=== PATIENT | female | born 1940 | race Caucasian/White ===

== ENCOUNTER 2018-02-02 14:13 | Inpatient (IN) ==
[2018-02-02] MEDS ORDERED: 0.9 % Sodium Chloride 1,000 ML IVC ONE ×2 (15:18→17:11)
--- NOTE | 2018-02-02 15:31 | Emergency Department Note ---
Disposition Clinical Impression: Generalized weakness, Dehydration Urinary tract infection Qualifiers: Urinary tract infection type: site unspecified Hematuria presence: without hematuria Qualified Code(s): N39.0 - Urinary tract infection, site not specified Pneumonia Qualifiers: Pneumonia type: due to unspecified organism Laterality: left Lung location: unspecified part of lung Qualified Code(s): J18.9 - Pneumonia, unspecified organism Disposition: Admitted As Inpatient Referrals: NONE,PCP [Primary Care Provider] - Forms: ED Satisfaction Letter General Adult HPI - General Chief complaint: ED Dizziness Stated complaint: Dizziness,Weakness Time Seen by Provider: 02/02/18 14:45 Source: patient Limitations: no limitations Nursing Notes Reviewed: Yes Vital Signs Reviewed: Yes - History of Present Illness HPI Narrative: Patient is a 77-year-old female with past medical history of hypertension and atrial fibrillation who presents with chief complaint of generalized weakness. Patient was in the hospital last week for decreased by mouth intake and abdominal pain. She was found to have a patulous lower esophageal sphincter and urinary tract infection. She was discharged home on Reglan, Macrobid, omeprazole. Patient states that her gastroesophageal reflux has improved on the omeprazole. She has a follow-up scheduled with gastroenterology February 24. She is still on the Macrobid. Denies dysuria. This morning the patient woke up with generalized bilateral weakness. She also complains of frontal headache. She denies dizziness, lightheadedness, chest pain, shortness of breath. She also notes a productive cough with clear sputum this morning. She went to the residency clinic for a follow-up and they sent her here for concerns of dehydration and to be admitted. She states that she only drinks one bottle of water per day and is still having decreased by mouth intake. Pain Scale: 10 - Related Data Previous Rx's Medication Instructions Recorded Metoclopramide [Reglan] 10 mg PO Q6HR PRN #14 tablet 01/28/18 Nitrofurantoin Monohyd/M-Cryst 100 mg PO BID #14 capsule 01/28/18 [Macrobid 100 mg Capsule] Omeprazole 20 mg PO BID #60 tab 01/28/18 Allergies Allergy/AdvReac Type Severity Reaction Status Date / Time Methadone Allergy Confusion Verified 01/28/18 10:49 Penicillins AdvReac Rash Verified 01/28/18 10:49 All systems ED: reviewed and negative except as stated. Review of Systems: As Per HPI Constitutional: Denies: fever, chills Eyes: Denies: vision change Cardiovascular: Denies: chest pain, palpitations Respiratory: Reports: cough. Denies: dyspnea, wheezes Gastrointestinal: Denies: abdominal pain, nausea, vomiting, diarrhea Genitourinary: Denies: urgency, dysuria Musculoskeletal: Denies: back pain, neck pain Integumentary: Denies: rash, abrasion Neurological: Reports: headache, weakness. Denies: numbness, paresthesias, confusion Past Medical History - Past Medical History Attestation: Yes The following information was validated with the patient. Source: patient, obtained from family Medical history: Reports: atrial fibrillation, hypertension, myocardial infarction Psychiatric history: Reports: anxiety, depression - Social History Smoking Status: Never smoker Smokeless Tobacco Status: No Alcohol use: Reports: none Drug use: Reports: none Physical Exam - General Limitations: no limitations General appearance: alert, in no apparent distress - Head Head exam: atraumatic, normocephalic - Eye Eye exam: Present: EOMI, other (Minimal pupillary responsiveness to light of right pupil which patient states is chronic for the past couple of years, she also has glaucoma. left pupil round and reactive to light.). Absent: nystagmus - ENT ENT exam: normal oropharynx, mucous membranes dry - Neck Neck exam: Present: normal inspection - Respiratory Respiratory exam: Present: normal lung sounds bilaterally. Absent: respiratory distress, wheezes, accessory muscle use - Cardiovascular Cardiovascular exam: Present: regular rate, normal rhythm. Absent: systolic murmur, diastolic murmur - Abdominal Exam Abdominal exam: Present: soft, Non-Tender, normal bowel sounds. Absent: distention, guarding - Extremities Exam Extremities exam: Present: normal inspection, full ROM - Expanded Neurological Exam Patient oriented to: Present: person, place, time Speech: Present: fluid speech Cranial nerves: EOM function (II, III, IV, ): Normal, facial sensation (V): Normal, facial palsy (VII): Normal, spinal accessory function (XI): Normal, tongue deviation (XII): Normal Cerebellar function: finger to nose: Normal Motor strength - LUE: 5/5 Motor strength - RUE: 5/5 Motor strength - LLE: 5/5 Motor strength - RLE: 5/5 Upper motor neuron exam: alfredo neglect: Absent bilaterally, pronator drift: Absent bilaterally Sensory exam upper extremity: light touch: Normal Sensory exam lower extremity: light touch: Normal - Psychiatric Psychiatric exam: Present: normal affect, normal mood - Skin Skin exam: Present: warm, dry, other (poor skin turgor ) Course Vital Signs Temperature 98.1 F 02/02/18 14:19 Pulse Rate 88 02/02/18 14:19 Respiratory Rate 16 02/02/18 14:19 Blood Pressure 94/64 02/02/18 14:19 O2 Sat by Pulse Oximetry 96 02/02/18 14:19 Temperature 98.1 F 02/02/18 14:54 Pulse Rate 88 02/02/18 14:54 Respiratory Rate 16 02/02/18 14:54 Blood Pressure 94/64 02/02/18 14:54 O2 Sat by Pulse Oximetry 96 02/02/18 14:54 Oxygen Delivery Oxygen Delivery Room Air Medical Decision Making - MDM Narrative Medical decision making narrative: Patient was sent over from the residency clinic to be admitted for concerns of dehydration and generalized weakness. She is still on Macrobid or a urinary tract infection. We will check BMP and give the patient 1 L of IV fluidsshe appears clinically dry. We will also check EKG given the patient's generalized weakness and history of atrial fibrillation. She is not complaining of any chest pain or shortness of breath or nausea. We will also check chest x-ray as the patient is complaining of new cough with productive sputum. She is otherwise afebrile and vitals are stable. 1700 Chest x-ray positive for left patchy basilar obesity concerning for pneumonia. Rocephin and Zithromax ordered. We will give him another liter of IV fluids as the patient continues to appear dry. Labs reviewed. Potassium 3.3 and calcium 8.5. Consult hospitalist as we plan to admit the patient for dehydration and generalized weakness and pneumonia. 1730 Hospitalist accepts patient for admission. Called patient's son to give him an update. - Medical Records Medical records reviewed: Yes I reviewed the patient's medical records. - Lab Data Lab results reviewed: Yes I reviewed the patient's lab results. Result diagrams: 02/02/18 16:38 Lab Results 02/02/18 02/02/18 Range/Units 15:34 16:38 Sodium 135 L (136-145) mEq/L Potassium 3.3 L (3.5-5.1) mEq/L Chloride 103 (98-107) mEq/L Carbon Dioxide 25 (23-29) mEq/L BUN 14 (8-23) mg/dL Creatinine 0.72 (0.60-1.20) mg/dL Est GFR ( Amer) > 60 (> 60) Est GFR (Non-Af Amer) > 60 (> 60) BUN/Creatinine Ratio 19 (6-26) Glucose 94 (70-105) mg/dL Calculated Osmolality 280 (280-300) Calcium 8.5 L (8.6-10.3) mg/dL Specimen Rejected Hemolyzed - Radiology Data Radiology results reviewed: Yes I reviewed the patient's radiology results. Chest X-Ray 02/02/18 15:19 IMPRESSION: Patchy left basilar opacity concerning for pneumonia. RECOMMENDATION: Radiographic follow-up after symptom resolution and treatment. D/ / Miah Brunson MD / Miah Brunson MD Interpreting Provider: Miah Brunson MD - EKG Data EKG #1 EKG attestation: Yes I reviewed and interpreted this EKG. EKG results narrative: EKG reviewed from 1546 which shows sinus rhythm with rate 78. QT 410, QTc 467. IA interval 145. No acute ST depression or elevation. Compared to prior EKG which appears unchanged from prior EKG on 01/28/18. T wave inverted in V2 unchanged from prior.
[2018-02-02 17:12] LABS: BUN/Creatinine Ratio 19 (6-26); Blood Urea Nitrogen 14 mg/dL (8-23); Calcium 8.5 mg/dL (8.6-10.3); Carbon Dioxide 25 mEq/L (23-29); Chloride 103 mEq/L (98-107); Glucose 94 mg/dL (70-105); Osmolality,Calculated 280 (280-300); Potassium 3.3 mEq/L (3.5-5.1); Sodium 135 mEq/L (136-145); eGFR For Non-African Americans > 60 (> 60)
[2018-02-02] MEDS ORDERED: cefTRIAXone 1,000 MG in Water for inj. (sterile) 20 ML 10 ML IVP ONE (17:12)
[2018-02-02] MEDS ORDERED: Azithromycin 500 MG in D5% in Water 250 ML IVPB ONE (17:47)
[2018-02-02 17:55] LABS: Hematocrit 39.7 % (35.3-44.9); Mean Corpuscular HGB Conc 33.2 g/dL (31.6-35.5); Mean Corpuscular Volume 87.3 fL (83.0-100.0); Mean Platelet Volume 10.7 fL (9.4-12.4); Platelet Count 201 K/mcL (140-400); Red Blood Count 4.55 M/mcL (3.82-4.97); Red Cell Distribution Width 13.8 % (11.5-14.5)
[2018-02-02 17:57] LABS: Hemoglobin 13.2 g/dL (11.5-15.4)
[2018-02-02] MEDS ORDERED: Naloxone 0.4 MG/ML INJ IVP PRN (17:59)
[2018-02-02] MEDS ORDERED: Ondansetron 4 MG/2 ML VIAL IVP PRN (18:03)
--- NOTE | 2018-02-02 18:14 | Internal Med History&Physical ---
Date of Encounter: 02/02/18 Time of Encounter: 18:07 Internal Medicine - H&P: HPI Chief complaint: Vomiting Admitted From: Home Plans for Post Hospital Care: Transfer Halfway Facility History of present illness: Ms. Rubin is a 77 year old female with hypertension and atrial fibrillation not on anticoagulation who presents with chief complaint of generalized weakness. As per patient she has had 2 week history of epigastric abdominal burning that radiates up her chest, 5 out of 10 on severity and progressively worsening. Her epigastric abdominal discomfort is also associated with nausea and vomiting. She reports that she is unable to keep any solids down and immediately vomits after swallowing, she reports that her vomitus contains food mixed with sputum denies bile or blood. She is able to tolerate liquids and has been hydrating herself with an sure liquids. Her symptoms have progressively wor sened for the past 2 weeks, she reports that solid food aggravates her symptoms and liquids alleviate her symptoms. She was seen in the emergency department on 01/28 and was discharged with PPI. She was also scheduled with gastroenterology appointment for February 24. This morning she was unable to use her walker as she felt more weak and dehydrated. She is not drank anything or ate anything for the past 24 hours. She denies falls, loss of function to her extremities, headache, vision changes, diarrhea, loss of consciousness, chest pain, palpitations or shortness of breath. She denies calf tenderness, trauma to her legs, syncopal episodes. Aiden line she walks with her walker however as she has not been able to eat any solid foods for the past 2 weeks she believes that she is becoming increasingly weak and is unable to use her walker. During her emergency department visit on January 28 she was also diagnosed with a urinary tract infection and was started on Macrobid antibiotics she reports that she has 2 more days to finish the course. While in the emergency department chest x-ray showed possible pneumonia, UA was positive and she was found to have leukocytosis of 18. She was endorsed for management of above symptoms. When asked if she is had history of irregular heartbeats she reports that she is unsure however she does have multiple falls and she reports that she is only t aking aspirin. Past Med Surg Social Fam HX - Past Medical History Medical history: atrial fibrillation, hypertension, myocardial infarction Psychiatric history: anxiety, depression - Past Surgical History Additional surgical history: 2 left knee replacements. 1 right knee replacement. back. bilateral hips. right femur fx - Social History Smoking Status: Never smoker Smokeless Tobacco Status: No Alcohol use: none Drug use: none Internal Medicine - H&P: Meds Metoclopramide [Reglan] 10 mg PO Q6HR PRN #14 tablet 01/28/18 [Rx] Nitrofurantoin Monohyd/M-Cryst [Macrobid 100 mg Capsule] 100 mg PO BID #14 capsule 01/28/18 [Rx] Omeprazole 20 mg PO BID #60 tab 01/28/18 [Rx] Allergy/AdvReac Type Severity Reaction Status Date / Time Methadone Allergy Confusion Verified 01/28/18 10:49 Penicillins AdvReac Rash Verified 01/28/18 10:49 All Systems PM: A 10-system review of systems was performed and is negative for pertinent findings except as documented above in the HPI. - Constitutional Vitals: Temp Pulse Resp BP Pulse Ox 98.1 F 88 16 94/64 96 02/02/18 14:54 02/02/18 14:54 02/02/18 14:54 02/02/18 14:54 02/02/18 14:54 Exam: General: Patient is alert, oriented, no acute distress, Head: atraumatic, normocephalic, Eye: normal appearance, PERRL, no scleral icterus, no conjunctival injection ENT: mucous membranes dry, normal external ear exam Neck: normal inspection, trachea midline, full ROM, no carotid bruits Chest: normal inspection, symmetric chest rise Respiratory: Good respiratory effort. Bilateral breath sounds are clear without wheezing, crackles, or rhonchi. Cardiovascular: Regular rate and rhythm. s1 and s2 No clicks, rubs, gallops, or murmors. Abdomen: Bowel sounds present normoactive x-4 quadrants. Abdomen is soft, nondistended. no Epigastric tenderness. No guarding or rebound. No organomegaly noted, obese musculoskeletal: Spontaneously moving all extremities. no edema, no calf tenderness Skin: warm, dry, intact. Neuro: Alert and oriented x4. No focal deficit Psych: Patient's affect is normal Internal Med - H&P Results - Labs CBC & Chem 7: 02/02/18 16:38 02/02/18 16:38 Labs: Short CBC 02/02/18 Range/Units 16:38 WBC 18.0 H D (4.3-11.1) K/mcL Hgb 13.2 D (11.5-15.4) g/dL Hct 39.7 (35.3-44.9) % Plt Count 201 (140-400) K/mcL [facility] 02/02/18 16:38 Sodium 135 L Potassium 3.3 L Chloride 103 Carbon Dioxide 25 BUN 14 Creatinine 0.72 Glucose 94 Calcium 8.5 L - Impressions ITS Impressions Chest X-Ray 02/02/18 15:19 IMPRESSION: Patchy left basilar opacity concerning for pneumonia. RECOMMENDATION: Radiographic follow-up after symptom resolution and treatment. D/ / Miah Brunson MD / Miah Brunson MD Interpreting Provider: Miah Brunson MD - Assessment and plan (1) Patulous lower esophageal sphincter Current Visit: No Status: Acute Assessment and plan: Dysphagia with solids and not liquids most likely secondary to stricture versus mass versus achalasia rule out malignancy Clear liquid diet, nothing by mouth at midnight GI consulted will follow recommendations for possible EGD in the morning Protonix IV Started on IV fluids, watch for overload IMPRESSION: 1. No acute abnormalities in the abdomen or pelvis. 2. Status post gastric surgery. Dilated patulous esophagus containing fluid. 3. Left nephrolithiasis but no obstructive uropathy. (2) CAP (community acquired pneumonia) Current Visit: Yes Status: Acute Assessment and plan: Left lower lobe opacity concerning for pneumonia, has increased sputum production Started on ceftriaxone and doxycycline- will de-escalate as per cultures Urine antigens Sputum cultures Blood cultures Respiratory viral panel MRSA screen Qualifiers: Laterality: left Lung location: lower lobe of lung Qualified Code(s): J18.1 - Lobar pneumonia, unspecified organism (3) Generalized weakness Current Visit: Yes Status: Acute Assessment and plan: Most likely secondary to poor oral intake and dehydration: Rule out stroke Started on IV fluidswatch for overload High risk for refeeding syndrome, will monitor phosphorus magnesium and CMP TSH, Magnesium, PO4 EKG stat -m unable to locate Admission EKG CT head ( history of Afib not on AC) - has multiple falls and unsteady gait Pt/OT CM, SW (4) Urinary tract infection Current Visit: Yes Status: Acute Assessment and plan: Was recently diagnosed with urinary tract infection and was discharged with Macrobid Currently on ceftriaxone as above Follow urine cultures retroperitoneal US to rule out hydronephrosis and obstruction Qualifiers: Urinary tract infection type: acute cystitis Hematuria presence: with hematuria Qualified Code(s): N30.01 - Acute cystitis with hematuria (5) Hypokalemia Current Visit: Yes Status: Acute Assessment and plan: replaced - follow in AM (6) DVT prophylaxis Current Visit: Yes Status: Acute Assessment and plan: heparin SC - Time Spent With Patient Total time spent is greater than 50% in coordination of care (as documented) at patient's floor/unit and/or counseling patient:
[2018-02-02 18:41] LABS: Bilirubin,Urine Negative (Negative); Blood,Urine Negative (Negative); Clarity,Urine Clear (Clear); Color,Urine Dark Yellow (Yellow); Glucose,Urine (UA) Normal (Normal); Ketones,Urine 15 mg/dL (Negative); Leukocyte Esterase,Urine Small (Negative); Nitrite,Urine Negative (Negative); Protein,Urine Negative (Neg-Trace); Specific Gravity,Urine 1.013 (1.010-1.025); Urobilinogen,Urine Normal (Normal)
[2018-02-02 18:48] LABS: Bacteria,Urine None Seen per hpf (None-Few); Hyaline Casts,Urine None Seen per lpf (None-Few); Squamous Epithelial Cell,Urine Many per lpf (None-Few)
[2018-02-02] MEDS: Pantoprazole 40 MG VIAL IVP SCH (20:25)
[2018-02-02] MEDS: 0.9 % Sodium Chloride 1,000 ML IVC SCH (20:25)
[2018-02-02] MEDS: Doxycycline 100 MG in 0.9 % Sodium Chloride Mini Bag 100 ML IVPB SCH (21:24)
[2018-02-02] MEDS: *HR* Heparin 5,000 UNIT/ML VIAL SQ SCH (22:46)
[2018-02-03 02:27] LABS: Adenovirus Not Detected (Not Detect); Bordetella Pertussis Not Detected (Not Detect); Chlamydophila pneumoniae Not Detected (Not Detect); Coronavirus 229E Not Detected (Not Detect); Coronavirus HKU1 Not Detected (Not Detect); Coronavirus NL63 Not Detected (Not Detect); Coronavirus OC43 Not Detected (Not Detect); Human Metapneumovirus Not Detected (Not Detect); Human Rhinovirus/Enterovirus Not Detected (Not Detect); Influenza A Subtype 2009 H1 Not Detected (Not Detect); Influenza A Untypeable Not Detected (Not Detect); Influenza B Not Detected (Not Detect); Mycoplasma pneumoniae Not Detected (Not Detect); Parainfluenza Virus 1 Not Detected (Not Detect); Parainfluenza Virus 2 Not Detected (Not Detect); Parainfluenza Virus 3 Not Detected (Not Detect); Parainfluenza Virus 4 Not Detected (Not Detect); Respiratory Syncytial Virus Not Detected (Not Detect)
[2018-02-03 05:11] LABS: VBG Ionized Calcium 1.04 mmol/L (1.15-1.35)
[2018-02-03 05:13] LABS: Basophils % 0.1 %; Eosinophils % 0.2 %; Hematocrit 34.4 % (35.3-44.9); Immature Granulocytes % 0.2 % (0-4); Lymphocytes # 1.5 K/mcL (0.6-4.6); Lymphocytes % 14.9 %; Mean Corpuscular HGB Conc 33.4 g/dL (31.6-35.5); Mean Corpuscular Hemoglobin 28.9 pg (28.0-33.3); Mean Corpuscular Volume 86.4 fL (83.0-100.0); Mean Platelet Volume 11.2 fL (9.4-12.4); Monocytes # 0.6 K/mcL (0.0-1.3); Monocytes % 5.7 %; Neutrophils # 8.1 K/mcL (1.6-8.9); Platelet Count 173 K/mcL (140-400); Red Blood Count 3.98 M/mcL (3.82-4.97); Red Cell Distribution Width 13.8 % (11.5-14.5); Segmented Neutrophils % 78.9 %
[2018-02-03 05:14] LABS: Hemoglobin 11.5 g/dL (11.5-15.4)
[2018-02-03 05:20] LABS: INR 1.3; Prothrombin Time 14.2 Seconds (9.4-12.1)
[2018-02-03] MEDS: Doxycycline 100 MG in 0.9 % Sodium Chloride Mini Bag 100 ML IVPB SCH ×2 (05:22→21:15)
[2018-02-03] MEDS: *HR* Heparin 5,000 UNIT/ML VIAL SQ SCH ×3 (05:22→21:14)
[2018-02-03 05:30] LABS: Alanine Aminotransferase 7 Units/L (7-52); Albumin 2.9 g/dL (3.5-5.7); Albumin/Globulin Ratio 1.6 (1.1-2.2); Alkaline Phosphatase 45 Units/L (34-104); Aspartate Amino Transferase 12 Units/L (13-39); BUN/Creatinine Ratio 20 (6-26); Bilirubin,Total 0.7 mg/dL (0.3-1.0); Blood Urea Nitrogen 11 mg/dL (8-23); Calcium 7.6 mg/dL (8.6-10.3); Carbon Dioxide 25 mEq/L (23-29); Chloride 109 mEq/L (98-107); Chol/HDL Ratio 2.2 (0-4.9); Cholesterol 76 mg/dL (< 200); Globulin 1.8 g/dL (2.4-3.5); Glucose 88 mg/dL (70-105); HDL Cholesterol 34 mg/dL (40-59); LDL Cholesterol,Calculated 29 mg/dL (0-99); Magnesium 1.7 mg/dL (1.6-2.6); Osmolality,Calculated 287 (280-300); Phosphorous 1.4 mg/dL (2.7-4.5); Sodium 139 mEq/L (136-145); Total Protein 4.7 g/dL (6.4-8.9); Triglycerides 65 mg/dL (< 150); eGFR For Non-African Americans > 60 (> 60)
--- NOTE | 2018-02-03 09:25 | Gastroenterology Consult Note ---
Date of Encounter: 02/03/18 Time of Encounter: 10:20 - Assessment and plan (1) Dysphasia Current Visit: Yes Status: Acute Assessment and plan: Patient is appearing to have dysphasia seemingly in the esophageal phase This is likely secondary to the finding of the dilated patulous esophagus demonstrated on CT 1 week ago Still, the patient has not had EGD recently for proper workup She has attempted Prilosec and Reglan which had not been helpful We will plan for EGD today to workup causes of dysphasia and significant nausea and vomiting and rule out malignancy Recommend against transition to PO doxycycline as it is caustic to esophagus (2) Nausea and vomiting Current Visit: Yes Status: Acute Assessment and plan: As above Qualifiers: Vomiting type: unspecified Vomiting Intractability: intractable Qualified Code(s): R11.2 - Nausea with vomiting, unspecified (3) Patulous lower esophageal sphincter Current Visit: Yes Status: Acute Assessment and plan: As above (4) Pneumonia Current Visit: Yes Status: Acute Assessment and plan: Pneumonia, demonstrated on chest x-ray Patient also does have crackles in the left lung base Antibiotics managed by primary team Qualifiers: Pneumonia type: due to unspecified organism Laterality: left Lung location: unspecified part of lung Qualified Code(s): J18.9 - Pneumonia, unspecified organism - Time Spent With Patient Total time spent is greater than 50% in coordination of care (as documented) at patient's floor/unit and/or counseling patient: GI History of Present Illness - Data of Consult Patient: new to practice Consult date: 02/03/18 Requesting Physician: Danielle Gómez MD - Consult Narrative Reason for consult: Dysphasia History of present illness: Ms. Rubin is a 77 year old female with history of atrial fibrillation not on anticoagulation, hypertension, myocardial infarction, recent urinary tract infection on antibiotics, and recent diagnosis of patulous lower esophageal sphincter who presents to the ED from her primary care physician's office with 2 week history of nausea, vomiting and dysphagia. The patient says that specifically she has been having worsening abdominal and epigastric pain with burning sensation in her esophagus or chest or approximately 2 weeks. He currently bad for the past week and she has been unable to tolerate any solids for the past week. She says every time she attempts to swallow any solid food she says that it does come straight back up. When she does not this material back up, she says it looks almost exactly as it did prior to swallowing. She denies any blood or bile in her vomit. She does say that she has been able to tolerate fluids up until this point, supplementing her diet primarily with ensure. On presentation, she said that her epigastric pain was 5 or 6/10, nonradiating, and burning in character. She did present to the ER on 01/28/18 at which time she had an abdominal CT that demonstrated patulous lower esophageal sphincter at which time she was discharged home with Prilosec and Reglan liver did not appear to help very much. She says that she has been losing weight since this began and says that she has lost 10 pounds in 1 week, primarily due to dehydration. She denies melena, hematochezia, hematemesis. Past Med Surg Social Fam HX - Past Medical History Medical history: atrial fibrillation, hypertension, myocardial infarction Psychiatric history: anxiety, depression - Past Surgical History Additional surgical history: 2 left knee replacements. 1 right knee replacement. back. bilateral hips. right femur fx - Social History Smoking Status: Never smoker Smokeless Tobacco Status: No Alcohol use: none Drug use: none Review of Systems: Constitutional: Denies chills. Admits to fever, generalized fatigue. Head/Neck: Denies JOHNSON, neck stiffness EENT: Denies vision changes/blurriness, rhinorrhea, congestion, sore throat CVS: Denies chest pain, palpitations, FENG, orthopnea, edema, PND Pulm: Denies SOB, hemoptysis, wheezing. Admits to cough with sputum production GI: Denies diarrhea, constipation, melena, hematemasis. Admits to abdominal pain, nausea, vomiting. : Denies dysuria, increased frequency, urgency, hematuria. Heme: Denies ease of bleeding or bruising MSK: Denies joint pain, limited ROM Skin: Denies rashes, ulcers, color changes Neuro: Denies JOHNSON, paresthesias, focal deficits, ataxia - Constitutional Vitals: Temp Pulse Resp BP Pulse Ox 98.0 F 79 15 90/60 92 02/03/18 06:28 02/03/18 06:28 02/03/18 06:28 02/03/18 07:02 02/03/18 06:28 Exam: Gen: Vitals noted. No acute distress. Eyes: anicteric sclerae, moist conjunctivae; no lid-lag; Pupils equal and reactive to light HENT: Atraumatic; oropharynx clear with moist mucous membranes and no mucosal ulcerations; normal hard and soft palate Neck: Trachea midline; supple, no thyromegaly or lymphadenopathy Cardiac: RRR, no murmur, +S1/S2 Pulmonary: Crackles present in left lower lung base Abdomen: soft, nontender, no guarding. No masses or hepatosplenomegaly MSK: ROM intact, no joint swelling noted Extremities: no BLE edema, nontender calf, no cyanosis or clubbing Skin: Normal temperature, turgor and texture; no rash, ulcers or subcutaneous nodules Neuro: moves all extremities, no focal deficits. Psych: Appropriate mood and behavior. A&Ox3 Results - Labs CBC & Chem 7: 02/03/18 04:31 12 04:31 Labs: Last Result Calcium 7.6 mg/dL (8.6-10.3) L 02/03/18 04:31 Triglycerides 65 mg/dL (< 150) 02/03/18 04:31 Entire Visit Hgb 11.5 g/dL (11.5-15.4) D 02/03/18 04:31 Hct 34.4 % (35.3-44.9) L 02/03/18 04:31 PT 14.2 Seconds (9.4-12.1) H 02/03/18 04:31 Total Bilirubin 0.7 mg/dL (0.3-1.0) 02/03/18 04:31 AST 12 Units/L (13-39) L 02/03/18 04:31 ALT 7 Units/L (7-52) 02/03/18 04:31 - ABG ABG results: PT/INR, D-dimer PT 14.2 Seconds (9.4-12.1) H 02/03/18 04:31 - Impressions Impressions Chest X-Ray 02/02/18 15:19 IMPRESSION: Patchy left basilar opacity concerning for pneumonia. RECOMMENDATION: Radiographic follow-up after symptom resolution and treatment. D/ / Miah Brunson MD / Miah Brunson MD Interpreting Provider: Miah Brunson MD Head CT 02/02/18 18:08 IMPRESSION: Minimal small-vessel ischemic changes bilaterally No acute intracranial abnormality. D/ / Jeremy Richards / Jeremy Richards Interpreting Provider: Jeremy Richards Consult Discharge Plan - Plan Referrals: Subhash Conway MD [Partnered Physician] - 02/22/18 3:00 pm Alexis Love DO [Resident] - 03/02/18 3:00 pm NONE,PCP [Primary Care Provider] -
[2018-02-03] MEDS: 0.9 % Sodium Chloride 1,000 ML IVC SCH (10:27)
[2018-02-03] MEDS: Pantoprazole 40 MG VIAL IVP SCH (10:27)
[2018-02-03] MEDS: cefTRIAXone 2,000 MG in 0.9 % Sodium Chloride Mini Bag 100 ML IVPB SCH (10:27)
--- NOTE | 2018-02-03 14:15 | Anesthesia Evaluation PreOp ---
Date of Encounter: 02/03/18 Time of Encounter: 14:10 - Past History Planned Operation: EGD Cardiac History: SC, HTN Pulmonary History: Denies Any Significant HX ACADEMIC SUPPORT COORDINATOR History: Denies Any Significant HX Other Medical History: Other (Anxiety Depression) Anesthesia History: No Prior Anesthetic Complications : No Alcohol Use: none Drug use: none Medications and Allergies Metoclopramide [Reglan] 10 mg PO Q6HR PRN #14 tablet 01/28/18 [Rx] Nitrofurantoin Monohyd/M-Cryst [Macrobid 100 mg Capsule] 100 mg PO BID #14 capsule 01/28/18 [Rx] Atenolol [Tenormin] 25 mg PO DAILY 02/03/18 [History] Estradiol [Estrace] 1 appl VG 2XW 02/03/18 [History] Mirabegron [Myrbetriq] 50 mg PO DAILY 02/03/18 [History] Pantoprazole Sodium [Protonix] 40 mg PO DAILY 02/03/18 [History] Solifenacin Succinate [Vesicare] 5 mg PO DAILY 02/03/18 [History] traZODone [TraZODone] 50 mg PO HS PRN 02/03/18 [History] Allergy/AdvReac Type Severity Reaction Status Date / Time Methadone Allergy Confusion Verified 01/28/18 10:49 Penicillins AdvReac Rash Verified 01/28/18 10:49 - Meds/Allergy Pre-op Review Medications Reviewed: Yes Allergies Reviewed: Yes Beta Blockers on Current Med List: No Anesthesia Results - Labs 02/03/18 04:31 02/03/18 04:31 Laboratory Tests 02/03/18 02/03/18 04:31 04:31 Hgb 11.5 D Hct 34.4 L Plt Count 173 Sodium 139 Potassium 3.0 L BUN 11 Creatinine 0.55 L - Imaging EKG: report reviewed (SR) Anesthesia Exam Vital Signs/O2 Sat/Glucose, Most Current Temp Pulse Resp BP Pulse Ox 02/03/18 12:04 97.9 F 76 14 114/57 97 Height: 5'4 Weight: 159 lbs NPO (# of Hours): MN Pain Scale: 1 - HEENT Pupil (Motor): Pupils equal, EOMI Mallampati: II Oral Opening: Greater than 3 - ACADEMIC SUPPORT COORDINATOR LOC: Oriented ACADEMIC SUPPORT COORDINATOR Motor: Normal RUE, Normal LUE, Normal RLE, Normal LLE, Normal Face ACADEMIC SUPPORT COORDINATOR Sensory: Normal: RUE, LUE, RLE, LLE, Face - Cardiac Rhythm: Regular Murmur: None JVD: No Carotid Bruit: No - Pulmonary Breath Sounds: bilateral Clear Respiratory Effort: Symmetrical Anesthesia Assess/Plan ASA Score: 3 (HTN AFib Hx SC) Level of consciousness: Cooperative, Oriented Anesthetic Plan: MAC Autologous Blood: No Monitoring Plan: Standard Monitors Recovery Plan: Other (Discussed MAC, agrees to proceed)
[2018-02-03] MEDS ORDERED: *HR* Propofol 200 MG/20 ML VIAL IVP ONE ×2 (14:17)
--- NOTE | 2018-02-03 15:50 | Internal Med Progress Note ---
Hospitalist Progress Note - Encounter Date of Encounter: 02/03/18 Time of Encounter: 15:47 - Subjective Interval History: Ms. Rubin is a 77 year old female with hypertension and atrial fibrillation not on anticoagulation who presents with chief complaint of generalized weakness. As per patient she has had 2 week history of epigastric abdominal burning that radiates up her chest, 5 out of 10 on severity and progressively worsening. Her epigastric abdominal discomfort is also associated with nausea and vomiting. She reports that she is unable to keep any solids down and immediately vomits after swallowing, she reports that her vomitus contains food mixed with sputum denies bile or blood. Patient was admitted in the hospital for further evaluation. Patient just came back from the EGD. Patient states she is feeling little better today. Still having difficulty to sallow - Exam Vitals: Temp Pulse Resp BP Pulse Ox 97.5 F L 68 15 111/62 97 02/03/18 15:41 02/03/18 15:41 02/03/18 15:41 02/03/18 15:41 02/03/18 15:41 Exam: Gen: Alert, awake, Oriented to time,place and person Chest: Diminished breath sounds B/L, No wheezing, No crackles, No rales Heart: S1S2+ RRR No murmurs Abd: Soft, NT, BS +, No organomegaly Ext: No edema, pulses are palpable, No calf tenderness Neuro : Benign findings Skin: No rash. - Assessment and Plan (1) Patulous lower esophageal sphincter Current Visit: Yes Status: Acute Assessment and Plan: Dysphagia with solids and not liquids s/p EGD gastric stenosis was found continue PPI pured diet for now will do barium swallow eval in the morning (2) Urinary tract infection Current Visit: Yes Status: Acute Assessment and Plan: Was recently diagnosed with urinary tract infection and was discharged with Macrobid Currently on ceftriaxone as above Follow urine cultures (3) Generalized weakness Current Visit: Yes Status: Acute Assessment and Plan: Physical deconditioning due to multiple medical comorbidities PT/OT eval (4) CAP (community acquired pneumonia) Current Visit: Yes Status: Acute Assessment and Plan: Left lower lobe opacity concerning for pneumonia, has increased sputum production mostly bacterial continue empirical antibiotic Rocephin (5) Hypokalemia Current Visit: Yes Status: Acute Assessment and Plan: replaced - follow in AM (6) Hypophosphatemia Current Visit: Yes Status: Acute Assessment and Plan: Due to nutritional deficiency continue replacing (7) DVT prophylaxis Current Visit: Yes Status: Acute Assessment and Plan: heparin SC - Time Spent with Patient Total time spent is greater than 50% in coordination of care (as documented) at patient's floor/unit and/or counseling patient: Internal Medicine: Result - Labs CBC & Chem 7: 02/03/18 04:31 02/03/18 04:31 Labs: Short CBC 02/02/18 02/03/18 Range/Units 16:38 04:31 WBC 18.0 H D 10.3 (4.3-11.1) K/mcL Hgb 13.2 D 11.5 D (11.5-15.4) g/dL Hct 39.7 34.4 L (35.3-44.9) % Plt Count 201 173 (140-400) K/mcL Neutrophils # 8.1 (1.6-8.9) K/mcL BMP 02/02/18 02/03/18 16:38 04:31 Sodium 135 L 139 Potassium 3.3 L 3.0 L Chloride 103 109 H Carbon Dioxide 25 25 BUN 14 11 Creatinine 0.72 0.55 L Glucose 94 88 Calcium 8.5 L 7.6 L Liver Function 02/03/18 Range/Units 04:31 Total Bilirubin 0.7 (0.3-1.0) mg/dL AST 12 L (13-39) Units/L ALT 7 (7-52) Units/L Alkaline Phosphatase 45 (34-104) Units/L Albumin 2.9 L (3.5-5.7) g/dL Urine 02/02/18 Range/Units 18:09 Urine Color Dark Yellow (Yellow) Urine Clarity Clear (Clear) Urine pH 6.0 (5.0-8.0) pH Units Ur Specific [place] 1.013 (1.010-1.025) Urine Protein Negative (Neg-Trace) mg/dL Urine Glucose (UA) Normal (Normal) mg/dL - ABG Interpretation ABG results: PT/INR, D-dimer PT 14.2 Seconds (9.4-12.1) H 02/03/18 04:31 - Impressions Impressions Chest X-Ray 02/02/18 15:19 IMPRESSION: Patchy left basilar opacity concerning for pneumonia. RECOMMENDATION: Radiographic follow-up after symptom resolution and treatment. D/ / Miah Brunson MD / Miah Brunson MD Interpreting Provider: Miah Brunson MD Head CT 02/02/18 18:08 IMPRESSION: Minimal small-vessel ischemic changes bilaterally No acute intracranial abnormality. D/ / Jeremy Richards / Jeremy Richards Interpreting Provider: Jeremy Richards Consult Discharge Plan - Plan Referrals: Subhash Conway MD [Partnered Physician] - 02/22/18 3:00 pm Alexis Love DO [Resident] - 03/02/18 3:00 pm NONE,PCP [Primary Care Provider] - (2) Urinary tract infection Qualifiers: Urinary tract infection type: acute cystitis Hematuria presence: with hematuria Qualified Code(s): N30.01 - Acute cystitis with hematuria (4) CAP (community acquired pneumonia) Qualifiers: Laterality: left Lung location: lower lobe of lung Qualified Code(s): J18.1 - Lobar pneumonia, unspecified organism
[2018-02-04] MEDS ORDERED: Melatonin 3 MG TABLET PO PRN (00:43)
[2018-02-04 04:32] LABS: BUN/Creatinine Ratio 14 (6-26); Blood Urea Nitrogen 7 mg/dL (8-23); Calcium 7.5 mg/dL (8.6-10.3); Carbon Dioxide 21 mEq/L (23-29); Chloride 113 mEq/L (98-107); Glucose 105 mg/dL (70-105); Magnesium 1.5 mg/dL (1.6-2.6); Osmolality,Calculated 286 (280-300); Phosphorous 1.5 mg/dL (2.7-4.5); Potassium 3.5 mEq/L (3.5-5.1); Sodium 139 mEq/L (136-145); eGFR For Non-African Americans > 60 (> 60)
[2018-02-04] MEDS: *HR* Heparin 5,000 UNIT/ML VIAL SQ SCH ×3 (06:15→21:31)
[2018-02-04] MEDS: Doxycycline 100 MG in 0.9 % Sodium Chloride Mini Bag 100 ML IVPB SCH ×2 (06:15→17:28)
[2018-02-04] MEDS: cefTRIAXone 2,000 MG in 0.9 % Sodium Chloride Mini Bag 100 ML IVPB SCH (09:33)
[2018-02-04] MEDS: Pantoprazole 40 MG VIAL IVP SCH (09:33)
--- NOTE | 2018-02-04 14:04 | Internal Med Progress Note ---
<Shari Mccollum P - Last Filed: 02/04/18 13:53> Hospitalist Progress Note - Encounter Date of Encounter: 02/04/18 Time of Encounter: 11:45 - Subjective Interval History: 77 years old female with past medical history of hypertension and A. fib(not in anti-Coagulation) admitted from ED for generalized weakness, burning epigastric abdominal pain, nausea and vomiting. She also admitted difficulty of swallowing solid food and often liquid as well. The patient regurgitates the swallowed food most of the time and it usually comes with froth/ sputum, but she denied any blood or bile in the vomit. Gastro team has been consulted, they did UGI endoscopy , that showed:mild Scatzki ring found lower oesophagus, 2 cm hiatus hernia , moderate stenosis in abdomen. X-ray chest showed left basilar opacity suggesting pneumonia. Urinalysis showed evidence of UTI. CT head was normal.Recent labs: The blood cell count 10.3, sodium 139, potassium 3.5, calcium 7.5, phosphorus 1.5, magnesium 1.5. Nasally screened for MRSA was positive. Today during my bedside visit, the patient was lying comfortably in the bed, well oriented to time place and person, was not not in acute distress. She admitted mild nausea but no vomiting today, she also admitted mild epigastric pain. Today's vitals : Temperature 97.7, pulse 75, blood pressure 135/90, sat 98% - Exam Vitals: Temp Pulse Resp BP Pulse Ox 97.7 F 75 18 135/90 98 02/04/18 11:41 02/04/18 11:41 02/04/18 11:41 02/04/18 11:41 02/04/18 11:41 Exam: Gen: Alert, awake, Oriented to time,place and person Chest: Diminished breath sounds B/L, No wheezing, No crackles, No rales Heart: S1S2+ RRR No murmurs Abd: Soft, NT, BS +, No organomegaly Ext: No edema, pulses are palpable, No calf tenderness Neuro : Benign findings Skin: No rash. - Assessment and Plan (1) Patulous lower esophageal sphincter Current Visit: Yes Status: Acute Assessment and Plan: She has history of dysphagia and regurgitation of solid food most of the time, but occasionally liquid Upper GI endoscopic showed: Mild hiatus hernia, moderate abdominal stenosis, mild schatzki ring We have put on PPI, gastro consultation has been done. We have planned barium swallow study. (2) CAP (community acquired pneumonia) Current Visit: Yes Status: Acute Assessment and Plan: The patient x-ray chest showed left lower lobe basilar opacity. He is on IV antibiotics and doxycycline and ceftriaxone The patient is getting better: (3) Urinary tract infection Current Visit: Yes Status: Acute Assessment and Plan: Was recently diagnosed with urinary tract infection and was discharged with Macrobid Currently on ceftriaxone IV antibiotic. Her urine culture was positive for Legionella antigen and streptococcal pneumonia antigen. (4) Hypokalemia Current Visit: Yes Status: Acute (5) Generalized weakness Current Visit: Yes Status: Acute Assessment and Plan: The patient has history of generalized weakness, with low calcium, low phosphor us and low magnesium It might be because of multiple comorbicdities and decrease intake and nutritio nal deficiency. (6) Dehydration Current Visit: Yes Status: Acute Assessment and Plan: The patient has improved hydration status after admission - Time Spent with Patient Total time spent is greater than 50% in coordination of care (as documented) at patient's floor/unit and/or counseling patient: Internal Medicine: Result - Labs CBC & Chem 7: 02/03/18 04:31 02/04/18 03:40 Labs: BMP 02/04/18 03:40 Sodium 139 Potassium 3.5 Chloride 113 H Carbon Dioxide 21 L BUN 7 L Creatinine 0.51 L Glucose 105 Calcium 7.5 L - ABG Interpretation ABG results: PT/INR, D-dimer PT 14.2 Seconds (9.4-12.1) H 02/03/18 04:31 Consult Discharge Plan - Plan Referrals: Subhash Conway MD [Partnered Physician] - 02/22/18 3:00 pm Alexis Love DO [Resident] - 03/02/18 3:00 pm NONE,PCP [Primary Care Provider] - <Danielle Gómez - Last Filed: 02/04/18 14:44> Hospitalist Progress Note - Encounter Date of Encounter: 02/04/18 - Exam Vitals: Temp Pulse Resp BP Pulse Ox 97.7 F 75 18 135/90 98 02/04/18 11:41 02/04/18 11:41 02/04/18 11:41 02/04/18 11:41 02/04/18 11:41 - Assessment and Plan (1) Patulous lower esophageal sphincter Current Visit: Yes Status: Acute (2) Urinary tract infection Current Visit: Yes Status: Acute (3) Generalized weakness Current Visit: Yes Status: Acute (4) CAP (community acquired pneumonia) Current Visit: Yes Status: Acute (5) Hypokalemia Current Visit: Yes Status: Acute (6) Hypophosphatemia Current Visit: Yes Status: Acute (7) DVT prophylaxis Current Visit: Yes Status: Acute - Time Spent with Patient Total time spent is greater than 50% in coordination of care (as documented) at patient's floor/unit and/or counseling patient: Internal Medicine: Result - Labs CBC & Chem 7: 02/03/18 04:31 02/04/18 03:40 Labs: BMP 02/04/18 03:40 Sodium 139 Potassium 3.5 Chloride 113 H Carbon Dioxide 21 L BUN 7 L Creatinine 0.51 L Glucose 105 Calcium 7.5 L - ABG Interpretation ABG results: PT/INR, D-dimer PT 14.2 Seconds (9.4-12.1) H 02/03/18 04:31 - Attending Attestation I examined this patient and my medical decision-making was reviewed with the Resident Physician Dr. Mccollum. I agree with the documented findings, disposition and treatment plan as described except to the extent set forth below. Ms. Rubin is a 77 year old female with hypertension and atrial fibrillation not on anticoagulation who presents with chief complaint of generalized weakness. As per patient she has had 2 week history of epigastric abdominal burning that radiates up her chest, 5 out of 10 on severity and progressively worsening. Her epigastric abdominal discomfort is also associated with nausea and vomiting. She reports that she is unable to keep any solids down and immediately vomits after swallowing, she reports that her vomitus contains food mixed with sputum denies bile or blood. Patient was admitted in the hospital for further evaluation. Patient had EGD y/d. Feels better today. Able to swallow liquids ok. Still having difficulty to sallow solids. Gen: A, A, O x 3 Chest: Diminished BS b/l, no wheezing, no crackles Heart: S1S2+ RRR No Murmurs Abd: Soft, NT, BS + a/p 1. Acute dysphagia ordered barium swallow appreciate GI and Speech recommendations 2. Acute PNA cont empirical abx mostly bacterial <Dhungana,Dhurba P - Last Filed: 02/04/18 13:53> (2) CAP (community acquired pneumonia) Qualifiers: Laterality: left Lung location: lower lobe of lung Qualified Code(s): J18.1 - Lobar pneumonia, unspecified organism (3) Urinary tract infection Qualifiers: Urinary tract infection type: acute cystitis Hematuria presence: with hematuria Qualified Code(s): N30.01 - Acute cystitis with hematuria <Diogo Gómezbu - Last Filed: 02/04/18 14:44> (2) Urinary tract infection Qualifiers: Urinary tract infection type: acute cystitis Hematuria presence: with hematuria Qualified Code(s): N30.01 - Acute cystitis with hematuria (4) CAP (community acquired pneumonia) Qualifiers: Laterality: left Lung location: lower lobe of lung Qualified Code(s): J18.1 - Lobar pneumonia, unspecified organism
[2018-02-05] MEDS: Doxycycline 100 MG in 0.9 % Sodium Chloride Mini Bag 100 ML IVPB SCH (04:53)
[2018-02-05] MEDS: *HR* Heparin 5,000 UNIT/ML VIAL SQ SCH (04:54)
[2018-02-05] MEDS: cefTRIAXone 2,000 MG in 0.9 % Sodium Chloride Mini Bag 100 ML IVPB SCH (07:39)
[2018-02-05] MEDS: Pantoprazole 40 MG VIAL IVP SCH (07:40)
[2018-02-05 08:15] VITALS: BP 131/60
--- NOTE | 2018-02-05 09:40 | Discharge Summary ---
<Shari Mccollum P - Last Filed: 02/05/18 10:12> - NOTES TO OUTPATIENT PROVIDER Notes to Outpatient Provider: *Follow-up with primary care provider within a week. *Follow-up with gastrologist within 7-10 days. * Continue doxycycline 100 MG, twice a day for 5 days. * Stop nitrofurantoin prescribed before. *Continue pantoprazole 40 MG by mouth daily. Orders not resulted at time of discharge: Pending orders 02/02/18 21:33 Culture,Blood [BC] Stat 02/03/18 14:54 Surgical Pathology [PTH] Routine 02/04/18 09:32 Vitamin D 1,25 Dihydroxy Routine Date of Encounter: 02/05/18 Time of Encounter: 09:00 - Discharge Diagnosis (1) Patulous lower esophageal sphincter Priority: Primary Status: Chronic Assessment and Plan: The patient has problem with swallowing solid food and occasionally liquid, she regurgitates and has had problem with swallowing . We did distribution center supervisor consultation, is for the recommendation, we we did UGI endoscopy and single- contrast upper GI series. UGI endoscopy : mild Scatzki ring found lower oesophagus, 2 cm hiatus hernia , moderate stenosis in abdomen and GI series : moderate narrowing in the region of the gastric body in the region of the prior gastric surgery and distension of the esophagus as well as the proximal gastric body with fluid seen pooling in the mid to distal esophagus. She will follow-up with distribution center supervisor team within 7-10 days (2) CAP (community acquired pneumonia) Priority: Primary Status: Acute Assessment and Plan: X-ray chest showed left basilar opacity suggesting pneumonia, he treated her with IV antibiotic ceftriaxone and doxycycline, she is getting better . Qualifiers: Laterality: left Lung location: lower lobe of lung Qualified Code(s): J18.1 - Lobar pneumonia, unspecified organism (3) Urinary tract infection Priority: Primary Status: Resolved Qualifiers: Urinary tract infection type: acute cystitis Hematuria presence: with hematuria Qualified Code(s): N30.01 - Acute cystitis with hematuria (4) Hypokalemia Priority: Primary Status: Chronic (5) Generalized weakness Priority: Primary Status: Chronic (6) Dehydration Priority: Primary Status: Resolved Hospital course: Ms. Rubin is a 77 year old female with past medical history of hypertension, A. fib (not in anticoagulation) admitted in inpatient for generalized weakness, burning abdominal pain, nausea and vomiting. She also admitted difficulty in swallowing solid food and occasionally liquid. We admitted her in inpatient, gastrology consultation was done. Using endoscopic showed :mild Scatzki ring found lower oesophagus, 2 cm hiatus hernia , moderate stenosis in abdomen. X- ray chest showed:left basilar opacity suggesting pneumonia. Urinalysis was suggestive of urinary tract infection and she was on nitrofurantoin for her urinary tract infection. Single contrast upper GI series:moderate narrowing in the region of the gastric body in the region of the prior gastric surgery and distension of the esophagus as well as the proximal gastric body with fluid seen pooling in the mid to distal esophagus. Ct head brain :Minimal small-vessel ischemic changes bilaterally,No acute intracranial abnormality. We treated her with IV ceftriaxone and doxycycline during her hospital stay. The patient has hypophosphatemia, hypocalcemia, and hypomagnemia and we gave supplementation while she was in hospital. Her latest magnesium is 1.5, potassium is 3.5, calcium is 7.5, phosphorus is 1.5. The patient is improving gradually, her vitals are stable, we are planning to discharge her and she will follow-up with primary care provider and gastrologist in outpatient in a week. She will continue doxycycline for about 5 days and continue pantoprazole. - Time Spent with Patient Total time spent providing and/or coordinating discharge services: - Discharge Medications Home Medications: Metoclopramide [Reglan] 10 mg PO Q6HR PRN #14 tablet 01/28/18 [Rx] Atenolol [Tenormin] 25 mg PO DAILY 02/03/18 [History] Estradiol [Estrace] 1 appl VG 2XW 02/03/18 [History] Mirabegron [Myrbetriq] 50 mg PO DAILY 02/03/18 [History] Pantoprazole Sodium [Protonix] 40 mg PO DAILY 02/03/18 [History] Solifenacin Succinate [Vesicare] 5 mg PO DAILY 02/03/18 [History] traZODone [TraZODone] 50 mg PO HS PRN 02/03/18 [History] Allergies/Adverse Reactions: Allergy/AdvReac Type Severity Reaction Status Date / Time Methadone Allergy Confusion Verified 01/28/18 10:49 Penicillins AdvReac Rash Verified 01/28/18 10:49 Date of admission: 02/03/18 16:31 Primary care physician: PCP NONE Consults: 02/02/18 17:58 Consult to Gastroenterology [CONS] Stat Consulting Provider: Gastroenterology Kari Reason for Consult: ?esophageal stricture unable to keep solids down x 2 weeks Call Completed: No 02/02/18 18:01 Consult to Case Management [CONS] Routine Comment: Consult to Nutrition [CONS] Routine Comment: Consulting Provider: NUTRITION Reason for Dietary Consult: PO Supplementation Consult to Physical Therapy [CONS] Routine Comment: Evaluate, develop and implement POC Reason for Consult: dispostion Does patient have active BEDREST order?: No Is patient medically & hemodynamically stable?: Yes Patient assessed for mobility or mobilized this visit?: Yes OT [Consult to Occupational Therapy] [CONS] Routine Comment: Evaluate, develop and implement POC Reason for Consult: disposition Does patient have active BEDREST order?: No Is patient medically & hemodynamically stable?: Yes Patient assessed for mobility or mobilized this visit?: Yes - Constitutional Vitals: Temp Pulse Resp BP Pulse Ox 98.2 F 80 18 131/60 95 02/05/18 08:11 02/05/18 08:11 02/05/18 08:11 02/05/18 08:11 02/05/18 08:11 General appearance: Present: A&O X 3, pleasant, no acute distress, answers questions appropriately Exam: Gen: Alert, awake, Oriented to time,place and person Chest: Diminished breath sounds B/L, No wheezing, No crackles, No rales Heart: S1S2+ RRR No murmurs Abd: Soft, NT, BS +, No organomegaly Ext: No edema, pulses are palpable, No calf tenderness Neuro : Benign findings Skin: No rash. - Patient Status Disposition: Home Health Service Condition: Fair Functional capacity at discharge: independent ambulation Overall status at discharge: patient is progressing back to baseline - Discharge Instructions Follow Up With: Subhash Conway MD [Partnered Physician] - 02/22/18 3:00 pm Alexis Love DO [Resident] - 03/02/18 3:00 pm NONE,PCP [Primary Care Provider] - - Diet and Activity Activity: resume usual activities as tolerated Diet: other (Mechanically altered diet /ground meat) <Danielle Gómez - Last Filed: 02/05/18 11:40> Orders not resulted at time of discharge: Pending orders 02/02/18 21:33 Culture,Blood [BC] Stat 02/04/18 09:32 Vitamin D 1,25 Dihydroxy Routine Date of Encounter: 02/05/18 - Discharge Diagnosis (1) Patulous lower esophageal sphincter Status: Chronic (2) Urinary tract infection Status: Resolved Qualifiers: Urinary tract infection type: acute cystitis Hematuria presence: with hematuria Qualified Code(s): N30.01 - Acute cystitis with hematuria (3) Generalized weakness Status: Chronic (4) CAP (community acquired pneumonia) Status: Acute Qualifiers: Laterality: left Lung location: lower lobe of lung Qualified Code(s): J18.1 - Lobar pneumonia, unspecified organism (5) Hypokalemia Status: Chronic (6) Hypophosphatemia Status: Acute (7) DVT prophylaxis Status: Acute Hospital course: Ms. Rubin is a 77 year old female - Time Spent with Patient Total time spent providing and/or coordinating discharge services: Date of admission: 02/03/18 16:31 Primary care physician: PCP NONE Consults: 02/02/18 17:58 Consult to Gastroenterology [CONS] Stat Consulting Provider: Gastroenterology Kari Reason for Consult: ?esophageal stricture unable to keep solids down x 2 weeks Call Completed: No 02/02/18 18:01 Consult to Case Management [CONS] Routine Comment: Consult to Nutrition [CONS] Routine Comment: Consulting Provider: NUTRITION Reason for Dietary Consult: PO Supplementation Consult to Physical Therapy [CONS] Routine Comment: Evaluate, develop and implement POC Reason for Consult: dispostion Does patient have active BEDREST order?: No Is patient medically & hemodynamically stable?: Yes Patient assessed for mobility or mobilized this visit?: Yes OT [Consult to Occupational Therapy] [CONS] Routine Comment: Evaluate, develop and implement POC Reason for Consult: disposition Does patient have active BEDREST order?: No Is patient medically & hemodynamically stable?: Yes Patient assessed for mobility or mobilized this visit?: Yes - Constitutional Vitals: Temp Pulse Resp BP Pulse Ox 98.2 F 80 18 131/60 95 02/05/18 08:11 02/05/18 08:11 02/05/18 08:11 02/05/18 08:11 02/05/18 08:11 - Attending Attestation I examined this patient and my medical decision-making was reviewed with the Resident Physician Dr. Mccollum. I agree with the documented findings, disposition and treatment plan as described except to the extent set forth below. Ms. Rubin is a 77 year old female with hypertension and atrial fibrillation not on anticoagulation who presents with chief complaint of generalized weakness. As per patient she has had 2 week history of epigastric abdominal burning that radiates up her chest, 5 out of 10 on severity and progressively worsening. Her epigastric abdominal discomfort is also associated with nausea and vomiting. She reports that she is unable to keep any solids down and immediately vomits after swallowing, she reports that her vomits contains food mixed with sputum denies bile or blood. Patient was admitted in the hospital for further evaluation. Patient had EGD. Feels better today. Able to swallow liquids and soft diet well. Gen: A, A, O x 3 Chest: Diminished BS b/l, no wheezing, no crackles Heart: S1S2+ RRR No Murmurs Abd: Soft, NT, BS + a/p 1. Acute dysphagia EGD showed mild Scatzki ring found lower oesophagus, 2 cm hiatus hernia , moderate stenosis in abdomen Barium swallow showed moderate narrowing of the gastric body in the region of previous gastric surgery. Educated the pt about diet modifications Thermoforming Machine Operator provided education about high calorie intake 2. Acute PNA cont empirical abx Doxy mostly bacterial 3. UTI- Was on Macrobid at home, current UA - WNL Recommend to continue Doxy 4. Severe protein caloric malnutrition Prealbumin 8.6 5. Hypophosphatemia Nutritional def replaced.
--- NOTE | 2018-02-05 10:11 | Physician Discharge Referral ---
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 For more information, call the [place] Tobacco Quit Line at 5-603-XQGK-NOW. - Diet/Nutrition Diet/Nutrition: List: Mechanically modified grounded meat . - Activity Activity Orders: Ambulate - Services Needed Following services are medically necessary services: Nursing, Physical Therapy, Occupational Therapy - Transfer Medications Home Medications: Metoclopramide [Reglan] 10 mg PO Q6HR PRN #14 tablet 01/28/18 [Rx] Atenolol [Tenormin] 25 mg PO DAILY 02/03/18 [History] Estradiol [Estrace] 1 appl VG 2XW 02/03/18 [History] Mirabegron [Myrbetriq] 50 mg PO DAILY 02/03/18 [History] Pantoprazole Sodium [Protonix] 40 mg PO DAILY 02/03/18 [History] Solifenacin Succinate [Vesicare] 5 mg PO DAILY 02/03/18 [History] traZODone [TraZODone] 50 mg PO HS PRN 02/03/18 [History] Allergies/Adverse Reactions: Allergy/AdvReac Type Severity Reaction Status Date / Time Methadone Allergy Confusion Verified 01/28/18 10:49 Penicillins AdvReac Rash Verified 01/28/18 10:49 Certification: Further, I certify that my clinical findings support that this patient is homebound (i.e. absences from home require considerable and taxing effort and are for medical reasons or nondenominational services or infrequently or short duration when for other reasons) because: Homebound Reason: Patient requires assistance of a person or device to safely leave home Attestation: My signature below is to certify that this patient is under my care and that I, or nurse practitioner, or a physician's special ed assistant working with me, has a [id number] encounter with this patient.
--- NOTE | 2018-02-05 17:39 | Electrocardiograph Report ---
[place] [id number] Test Date: 2018-02-02 Pat Name: Yulissa Rubin Department: [id number] Room: 3B23 Gender: F Inspector [place]: : 1940 Requested By: Danyell Guerrero Order Number: [id number] Reading MD: Jenna Robbins Measurements Intervals [place] Rate: 78 P: 56 [place]: 145 QRS: 63 QRSD: 108 T: 61 QT: 410 QTc: 467 Interpretive Statements Sinus rhythm with PACs Borderline IVCD Borderline T abnormalities, anterior leads Electronically Signed On 02-05-2018 17:38:07 EST by Jenna Robbins
== END 2018-02-05 13:58 | disposition home health service (06) | DRG 194 ==
LOC: EMEROOARM 14:13 → 3BNU 14:13 → SUATTDRO 18:12 → 3BNU 18:52
PROVIDERS: ADMIT Student in an Organized Health Care Education/Training Program; ATTEND Family Medicine
PROC: ENDOEBX (2018-02-03 14:10)

== ENCOUNTER 2018-03-08 13:29 | Inpatient (IN) ==
[2018-03-08] MEDS ORDERED: GI Cocktail 40 ML EACH PO ONE (14:00)
[2018-03-08] MEDS ORDERED: Ondansetron 4 MG/2 ML VIAL IVP ONE (14:02)
[2018-03-08] MEDS ORDERED: *HR* LORazepam 2 MG/ML VIAL IVP ONE (14:02)
[2018-03-08] MEDS ORDERED: Isovue-370 500 ML BOTTLE IVP ONE (14:09)
--- NOTE | 2018-03-08 14:13 | Emergency Department Note ---
Disposition Clinical Impression: Dysphasia, Renal calculus, left Chest pain Qualifiers: Chest pain type: unspecified Qualified Code(s): R07.9 - Chest pain, unspecified Nausea & vomiting Qualifiers: Vomiting type: unspecified Vomiting Intractability: unspecified Qualified Code(s): R11.2 - Nausea with vomiting, unspecified Disposition: Admitted As Inpatient Condition: Good Time of Disposition: 17:15 General Adult HPI - General Chief complaint: ED Chest Pain Stated complaint: Pain all over Time Seen by Provider: 03/08/18 13:41 Source: patient, family (Son) Limitations: no limitations Nursing Notes Reviewed: Yes Vital Signs Reviewed: Yes - History of Present Illness HPI Narrative: 77-year-old female history of hypertension, reflux, anxiety depression with known Schatzki ring presents to the emergency department with pain all over. She states over the past week or so she is been nauseated and unable to keep anything down. She was being evaluated and OB office today approximately one hour prior to arrival for placement of pessary. During her visit she began developing worsening abdominal pain and chest pain. She states it was quite sharp and radiated across her chest. It also felt like it went down into the abdomen. It lasted for a few minutes but then she had a subsequent episode here in the emergency department. Reports a history of cardiac ischemic disease without stent placement. She has a history of atrial fibrillation rate controlled but not on any anticoagulants outside of baby aspirin. She states she does not feel well. She does have a gastroenterology appointment scheduled at 1500 today due to her recent esophageal dilation. Patient was recently admitted over [place] for pneumonia and discharged on the years. Since then she is been having these similar symptoms Pain Scale: 10 - Related Data Home Medications Medication Instructions Recorded Confirmed RX: Atenolol [Tenormin] 25 mg PO DAILY 02/03/18 02/10/18 RX: Estradiol [Estrace] 1 appl VG 2XW 02/03/18 02/10/18 RX: Mirabegron [Myrbetriq] 50 mg PO DAILY 02/03/18 02/10/18 RX: Solifenacin Succinate 5 mg PO DAILY 02/03/18 02/10/18 [Vesicare] RX: traZODone [TraZODone] 50 mg PO HS PRN 02/03/18 02/10/18 RX: Brimonidine 0.2% [Alphagan] 1 drop LEFT EYE TID 02/10/18 02/10/18 RX: Dorzolamide [Trusopt] 1 drop LEFT EYE TID 02/10/18 02/10/18 RX: Glucosamn/[place]/C/Mn/[place] 1 tab PO DAILY 02/10/18 02/10/18 [[facility] Glucosamine Chondroitin Tb] RX: Latanoprost [Xalatan] 1 drop LEFT EYE QPM 02/10/18 02/10/18 RX: Metoclopramide [Reglan] 10 mg PO QID 02/10/18 02/10/18 RX: Multivitamin/Iron/Folic Acid 1 tab PO DAILY 02/10/18 02/10/18 [Certavite-Antioxidant Tablet] RX: Pantoprazole Sodium [Protonix] 40 mg PO DAILY 02/10/18 02/10/18 RX: Timolol Maleate 0.5% 1 drop LEFT EYE DAILY 02/10/18 02/10/18 Previous Rx's Medication Instructions Recorded RX: Omeprazole [PriLOSEC] 20 mg PO BIDAC #60 cap 02/05/18 Allergies Allergy/AdvReac Type Severity Reaction Status Date / Time methadone [Methadone] Allergy See Verified 02/10/18 17:40 Comments Penicillins AdvReac See Verified 02/10/18 17:40 Comments All systems ED: reviewed and negative except as stated. Review of Systems: As Per HPI Constitutional: Denies: fever, chills ENT ED: Denies: congestion Cardiovascular: Reports: chest pain Respiratory: Reports: dyspnea. Denies: cough Gastrointestinal: Reports: abdominal pain, nausea, vomiting. Denies: diarrhea Genitourinary: Reports: urgency, frequency. Denies: dysuria, hematuria, discharge Musculoskeletal: Denies: back pain Integumentary: Denies: rash, abrasion Neurological: Denies: confusion Past Medical History - Past Medical History Attestation: Yes The following information was validated with the patient. Source: patient Medical history: Reports: atrial fibrillation, hypertension, myocardial infarction Surgical history: Reports: cholecystectomy Psychiatric history: Reports: anxiety, depression - Social History Smoking Status: Never smoker Smokeless Tobacco Status: No Alcohol use: Reports: none Drug use: Reports: none Physical Exam - General Limitations: no limitations General appearance: alert, in no apparent distress, anxious - Head Head exam: atraumatic, normocephalic, normal inspection - Eye Eye exam: Present: normal appearance, PERRL, EOMI - ENT ENT exam: normal exam, normal oropharynx, mucous membranes moist - Neck Neck exam: Present: normal inspection, full ROM, trachea midline - Chest Chest inspection: Present: normal inspection, symmetric chest wall rise, tenderness - Respiratory Respiratory exam: Present: normal lung sounds bilaterally. Absent: respiratory distress, wheezes - Cardiovascular Cardiovascular exam: Present: normal rhythm, irregular rhythm, normal heart sounds. Absent: systolic murmur, diastolic murmur - Abdominal Exam Abdominal exam: Present: soft, tenderness, normal bowel sounds. Absent: Non- Tender, distention, guarding, rebound, rigidity Abdominal tenderness: Present: diffuse - Extremities Exam Extremities exam: Present: normal inspection, full ROM, normal capillary refill. Absent: tenderness, pedal edema - Back Exam Back exam: Present: normal inspection, full ROM. Absent: tenderness - Neurological Exam Neurological exam: Present: alert, oriented X3 - Psychiatric Psychiatric exam: Present: normal affect, normal mood - Skin Skin exam: Present: warm, dry, intact, normal color. Absent: rash, cyanosis, diaphoresis Course Course Narrative: Patient presents with pain all over with new chest pain starting today. She reports episodes of abdominal pain nausea vomiting and unable to keep anything down over the past week. She was recently hospitalized and found to have esophageal stricture. She generally feels week. Report history of cardiac ischemic disease. Chest pain workup including a CT scan of her abdomen to further evaluate. Disposition pending workup. - Reevaluation(s) Reevaluation #1: Review of labs does not show leukocytosis. Everything appears unremarkable. Lactate normal. She is not septic appearing. Her chest x-ray did not reveal any abnormalities or infiltrates. Her CT scan of abdomen did show a large amount of stool in a large kidney stone approximately 8 cm with surrounding stranding and ball vvalve effect concern for intermittent obstruction. This finding appears acute compared to prior scan 1 month ago. She does have greater left side versus right-sided abdominal discomfort. Her chest pain has improved and suspect this was secondary to her Schatzki ring. Her urinalysis does appear co ncerning for infection, it was performed as a clean catch but did not reveal any bacteria but many WBC and leuk esterase and squam cells. Will treat this empirically and consult urology and plan to admit the patient for further pain management and treatment given that she is unable to tolerate oral. Impression is generalized weakness, abdominal pain, nausea vomiting. Time: 16:25 - Consultations Consultation #1: Spoke to the on-call urologist Dr. Borges who agrees this could be intermittent obstruction and that the patient may require a stent placement during hospitalization. Will be happy to to see the patient and consultation. Time: 16:41 Consultation #2: Spoke with on-call hospitalist cristino Sullivan to admit for generalized weakness, chest pain, nausea/vomiting, abdominal pain,renal calculi. No further orders at this time Time: 17:05 Vital Signs Temperature 98.5 F 03/08/18 13:34 Pulse Rate 75 03/08/18 13:34 Respiratory Rate 18 03/08/18 13:34 Blood Pressure 112/96 03/08/18 13:34 O2 Sat by Pulse Oximetry 100 03/08/18 13:34 Temperature 98.5 F 03/08/18 13:34 Pulse Rate 81 03/08/18 14:35 Respiratory Rate 18 03/08/18 14:35 Blood Pressure 106/74 03/08/18 14:35 O2 Sat by Pulse Oximetry 97 03/08/18 14:35 Oxygen Delivery Oxygen Delivery Room Air Medical Decision Making - MDM Narrative Medical decision making narrative: Patient was discussed with my attending physician who agrees with ED management and final disposition. They independently evaluated the patient. Please refer to their attestation to this encounter for additional information. This note was generated by [employer] voice recognition software and as a result grammatical or spelling errors may occur using this program. - Medical Records Medical records reviewed: Yes I reviewed the patient's medical records. - Lab Data Lab results reviewed: Yes I reviewed the patient's lab results. Result diagrams: 03/08/18 14:08 03/08/18 14:08 Lab Results 03/08/18 03/08/18 03/08/18 Range/Units 14:08 14:08 14:08 WBC 9.0 (4.3-11.1) K/mcL RBC 4.99 H (3.82-4.97) M/mcL Hgb 14.1 (11.5-15.4) g/dL Hct 42.7 (35.3-44.9) % MCV 85.6 (83.0-100.0) fL MCH 28.3 (28.0-33.3) pg MCHC 33.0 (31.6-35.5) g/dL RDW 14.0 (11.5-14.5) % Plt Count 340 (140-400) K/mcL MPV 10.2 (9.4-12.4) fL Immature Gran % 0.2 (0-4) % Seg Neutrophils % 60.8 % Lymphocytes % 31.4 % Monocytes % 6.6 % Eosinophils % 0.6 % Basophils % 0.4 % Neutrophils # 5.5 (1.6-8.9) K/mcL Lymphocytes # 2.8 (0.6-4.6) K/mcL Monocytes # 0.6 (0.0-1.3) K/mcL Eosinophils # 0.1 (0.0-0.6) K/mcL Basophils # 0.0 (0.0-0.2) K/mcL Sodium (136-145) mEq/L Potassium (3.5-5.1) mEq/L Chloride (98-107) mEq/L Carbon Dioxide (23-29) mEq/L BUN (8-23) mg/dL Creatinine (0.60-1.20) mg/dL Est GFR ( Amer) (> 60) Est GFR (Non-Af Amer) (> 60) BUN/Creatinine Ratio (6-26) Glucose (70-105) mg/dL Calculated Osmolality (280-300) Lactic Acid 2.0 (0.5-2.2) mmol/L Calcium (8.6-10.3) mg/dL Total Bilirubin (0.3-1.0) mg/dL AST (13-39) Units/L ALT (7-52) Units/L Alkaline Phosphatase (34-104) Units/L Troponin I < 0.03 (< 0.04) ng/mL Serum Total Protein (6.4-8.9) g/dL Albumin (3.5-5.7) g/dL Globulin (2.4-3.5) g/dL Albumin/Globulin Ratio (1.1-2.2) Lipase (11-82) Units/L Urine Color (Yellow) Urine Clarity (Clear) Urine pH (5.0-8.0) pH Units Ur Specific [place] (1.010-1.025) Urine Protein (Neg-Trace) mg/dL Urine Glucose (UA) (Normal) mg/dL Urine Ketones (Negative) mg/dL Urine Blood (Negative) Urine Nitrite (Negative) Urine Bilirubin (Negative) Urine Urobilinogen (Normal) mg/dL Ur Leukocyte Esterase (Negative) Urine Microscopic RBC (0-3) per hpf Urine Microscopic WBC (0-3) per hpf Ur Squamous Epith Cells (None-Few) per lpf Urine Bacteria (None-Few) per hpf Hyaline Casts (None-Few) per lpf Ur Culture Indicated? (NO) 03/08/18 03/08/18 Range/Units 14:08 15:42 WBC (4.3-11.1) K/mcL RBC (3.82-4.97) M/mcL Hgb (11.5-15.4) g/dL Hct (35.3-44.9) % MCV (83.0-100.0) fL MCH (28.0-33.3) pg MCHC (31.6-35.5) g/dL RDW (11.5-14.5) % Plt Count (140-400) K/mcL MPV (9.4-12.4) fL Immature Gran % (0-4) % Seg Neutrophils % % Lymphocytes % % Monocytes % % Eosinophils % % Basophils % % Neutrophils # (1.6-8.9) K/mcL Lymphocytes # (0.6-4.6) K/mcL Monocytes # (0.0-1.3) K/mcL Eosinophils # (0.0-0.6) K/mcL Basophils # (0.0-0.2) K/mcL Sodium 140 (136-145) mEq/L Potassium 3.7 (3.5-5.1) mEq/L Chloride 100 (98-107) mEq/L Carbon Dioxide 27 (23-29) mEq/L BUN 12 (8-23) mg/dL Creatinine 0.63 (0.60-1.20) mg/dL Est GFR ( Amer) > 60 (> 60) Est GFR (Non-Af Amer) > 60 (> 60) BUN/Creatinine Ratio 19 (6-26) Glucose 86 (70-105) mg/dL Calculated Osmolality 289 (280-300) Lactic Acid (0.5-2.2) mmol/L Calcium 9.8 (8.6-10.3) mg/dL Total Bilirubin 0.9 (0.3-1.0) mg/dL AST 18 (13-39) Units/L ALT 8 (7-52) Units/L Alkaline Phosphatase 56 (34-104) Units/L Troponin I (< 0.04) ng/mL Serum Total Protein 6.1 L (6.4-8.9) g/dL Albumin 3.7 (3.5-5.7) g/dL Globulin 2.4 (2.4-3.5) g/dL Albumin/Globulin Ratio 1.5 (1.1-2.2) Lipase 17 (11-82) Units/L Urine Color Dark Yellow (Yellow) Urine Clarity Clear (Clear) Urine pH 7.0 (5.0-8.0) pH Units Ur Specific [place] 1.028 H (1.010-1.025) Urine Protein 30 H (Neg-Trace) mg/dL Urine Glucose (UA) Normal (Normal) mg/dL Urine Ketones 40 H (Negative) mg/dL Urine Blood Negative (Negative) Urine Nitrite Negative (Negative) Urine Bilirubin Small H (Negative) Urine Urobilinogen Normal (Normal) mg/dL Ur Leukocyte Esterase Moderate H (Negative) Urine Microscopic RBC 5-15 H (0-3) per hpf Urine Microscopic WBC 50-100 H (0-3) per hpf Ur Squamous Epith Cells Many H (None-Few) per lpf Urine Bacteria None Seen (None-Few) per hpf Hyaline Casts Few (None-Few) per lpf Ur Culture Indicated? NO. A (NO) - Radiology Data Radiology results reviewed: Yes I reviewed the patient's radiology results. Chest X-Ray 03/08/18 14:00 IMPRESSION: No acute cardiopulmonary disease. D/ / Alexis Osorio MD / Alexis Osorio MD Interpreting Provider: Alexis Osorio MD Abdomen/Pelvis CT 03/08/18 14:09 IMPRESSION: No definite abnormality identified to explain the patient's right lower quadrant abdominal pain. There is a moderate amount of stool within the colon, suggesting possible constipation. New when compared to the previous exam is urothelial thickening and fat stranding surrounding the proximal left renal collecting system. This would suggest irritation/inflammation of the urothelium, possibly secondary to a mobile left renal calculus creating a ball-valve effect with resultant intermittent obstruction. Correlate with clinical evidence of left flank pain or urinary tract infection. D/ / Andrea Bales MD / Andrea Bales MD Interpreting Provider: Andrea Bales MD - EKG Data EKG #1 EKG attestation: Yes I reviewed and interpreted this EKG. EKG results narrative: EKG performed 133 appears to be sinus rhythm 79 beats per minute, no ST elevation or depression. Compared to prior EKG performed 02/02/2018 which showed sinus rhythm with PACs. No acute ischemic changes. Attestation Statement - Attestation Attestation: Resident Attestation: I examined this patient and my medical decision making was reviewed with the Resident Physician. I agree with the documented findings, disposition and treatment plan as described except to the extent set forth below. We independently had [id number] contact with the patient. Patient presents to the emergency department for evaluation of multiple complaints. Patient states that she hurts all over. Patient was at OB office for evaluation for pessary. The patient states she is also supposed to see the casino cage manager. Patient is unable to specify specifically why. She complains of generalized abdominal pain with most significant tenderness to the epigastric region. She has also had complaints of chest pain as well as nausea and vomiting. Patient will undergo further evaluation with would work, EKG, CT abdomen and pelvis. Moderate distress secondary to pain and anxiety, regular rhythm, clear to auscultation bilaterally, abdomen with generalized tenderness worsening epigastric region without guarding or rebound. Initial workup does not show specific etiology. Patient does have concern for hydronephrosis. Urine concerning for possible UTI. Ceftriaxone and urology consult. Patient admitted to the hospitalist service.
[2018-03-08 14:24] LABS: Basophils % 0.4 %; Eosinophils # 0.1 K/mcL (0.0-0.6); Eosinophils % 0.6 %; Hematocrit 42.7 % (35.3-44.9); Hemoglobin 14.1 g/dL (11.5-15.4); Immature Granulocytes % 0.2 % (0-4); Lymphocytes # 2.8 K/mcL (0.6-4.6); Lymphocytes % 31.4 %; Mean Corpuscular Hemoglobin 28.3 pg (28.0-33.3); Mean Corpuscular Volume 85.6 fL (83.0-100.0); Mean Platelet Volume 10.2 fL (9.4-12.4); Monocytes # 0.6 K/mcL (0.0-1.3); Monocytes % 6.6 %; Neutrophils # 5.5 K/mcL (1.6-8.9); Platelet Count 340 K/mcL (140-400); Red Blood Count 4.99 M/mcL (3.82-4.97); Segmented Neutrophils % 60.8 %
[2018-03-08 14:51] LABS: Alanine Aminotransferase 8 Units/L (7-52); Albumin 3.7 g/dL (3.5-5.7); Albumin/Globulin Ratio 1.5 (1.1-2.2); Alkaline Phosphatase 56 Units/L (34-104); Aspartate Amino Transferase 18 Units/L (13-39); BUN/Creatinine Ratio 19 (6-26); Bilirubin,Total 0.9 mg/dL (0.3-1.0); Blood Urea Nitrogen 12 mg/dL (8-23); Calcium 9.8 mg/dL (8.6-10.3); Carbon Dioxide 27 mEq/L (23-29); Chloride 100 mEq/L (98-107); Globulin 2.4 g/dL (2.4-3.5); Glucose 86 mg/dL (70-105); Lipase 17 Units/L (11-82); Osmolality,Calculated 289 (280-300); Potassium 3.7 mEq/L (3.5-5.1); Sodium 140 mEq/L (136-145); Total Protein 6.1 g/dL (6.4-8.9); eGFR For Non-African Americans > 60 (> 60)
[2018-03-08 15:52] LABS: Bilirubin,Urine Small (Negative); Blood,Urine Negative (Negative); Clarity,Urine Clear (Clear); Color,Urine Dark Yellow (Yellow); Glucose,Urine (UA) Normal (Normal); Ketones,Urine 40 mg/dL (Negative); Leukocyte Esterase,Urine Moderate (Negative); Nitrite,Urine Negative (Negative); Protein,Urine 30 mg/dL (Neg-Trace); Specific Gravity,Urine 1.028 (1.010-1.025); Urobilinogen,Urine Normal (Normal)
[2018-03-08 15:56] LABS: Bacteria,Urine None Seen per hpf (None-Few); Hyaline Casts,Urine Few per lpf (None-Few); Squamous Epithelial Cell,Urine Many per lpf (None-Few); WBC,Urine 50-100 per hpf (0-3)
[2018-03-08] MEDS ORDERED: 0.9 % Sodium Chloride 1,000 ML IVC ONE (16:24)
[2018-03-08] MEDS ORDERED: cefTRIAXone 1,000 MG in Water for inj. (sterile) 20 ML 10 ML IVP ONE (16:31)
[2018-03-08] MEDS ORDERED: Naloxone 0.4 MG/ML INJ IVP PRN (17:17)
--- NOTE | 2018-03-08 17:57 | Internal Med History&Physical ---
<Alexi Gilbert - Last Filed: 03/08/18 18:26> Date of Encounter: 03/08/18 Time of Encounter: 17:41 Internal Medicine - H&P: HPI Chief complaint: Nausea and vomiting Admitted From: Emergency Dept Plans for Post Hospital Care: Home History of present illness: Ms. Rubin is a 77 year old female with history of hypertension, myocardial infarction, atrial fibrillation, status post cholecystectomy, recent admission for nausea and vomiting with EGD demonstrating Schatzki's ring status post dilation who presented to the ED with 1-1/2 week history of worsening abdominal pain and nausea and vomiting. The patient states that she was visiting to physician's appointments when she noticed that her abdominal pain was acutely worsening and is no longer able to take it and decided to go to the emergency room. She states that her abdominal pain is associated with nausea and vomiting and has been going on for approximately 1-1/2 week. When asked, she says the pain started all at once and has been in some ways getting progressively worse. It is extremely severe according to the patient. The pain is epigastric in location, however she does seem to gesture that the pain sThere is some radiation to her chest with a burning sensation and it otherwise seems to be located all over her abdomen. She says that the pain is associated with nausea and vomiting and she is unable to keep any foods or liquids down. Specifically, she said that she is able to keep small bites of ice cream or other soft foods down, however she attempts to drink a significant amount of fluids or eat a significant amount of food she immediately will throw it up. She has been able to swallow pills and keep them down for the large part. The patient does state that she has been here for similar symptoms 2 times since , and she has been worked up by gastroenterology and that time. Upon further questioning, she notes that she has not really began to feel much better since those discharges, and she has continued to have the same symptoms. In all she says that she really has not been feeling well over the past 3-4 months. She did say that she started to feel minimally better at the end of her last admission well tolerating full liquids, however upon returning home and returning to her normal diet, she was no longer able to tolerate food in general. In addition of these symptoms she does say that she has been having urinary troubles in general. She says that she has some dysuria and general incontinence which is developed recently. She says that she has been unable to control her urinary flow in g eneral. She otherwise has no acute complaints. In the emergency department the patient had labs which were generally unremarkable aside from a urinalysis which did demonstrate moderate white blood cells and leukocyte esterase but was a somewhat contaminated sample. A CT of the abdomen and pelvis demonstrated moderate stool in the colon suggesting possible constipation as well as urothelial thickening and fat stranding surrounding the proximal left renal collecting system suggestive of the left renal calculus that may lead to intermittent obstruction. Urology was contacted from the emergency department and agreed to see this patient in consultation due to concern for obstruction and need for stent. The patient was admitted to the hospitalist service for intractable nausea and vomiting. Past Med Surg Social Fam HX - Past Medical History Medical history: atrial fibrillation, hypertension, myocardial infarction Psychiatric history: anxiety, depression - Past Surgical History Surgical History: cholecystectomy Additional surgical history: 2 left knee replacements. 1 right knee replacement. back. bilateral hips. right femur fx - Social History Smoking Status: Never smoker Smokeless Tobacco Status: No Alcohol use: none Drug use: none - Family History Mother Living Status: Father Living Status: Hx Family Cardiac Disorders: Yes Internal Medicine - H&P: Meds Atenolol [Tenormin] 25 mg PO DAILY 02/03/18 [History] Estradiol [Estrace] 1 appl VG 2XW 02/03/18 [History] Mirabegron [Myrbetriq] 50 mg PO DAILY 02/03/18 [History] Solifenacin Succinate [Vesicare] 5 mg PO DAILY 02/03/18 [History] traZODone [TraZODone] 50 mg PO HS PRN 02/03/18 [History] Omeprazole [PriLOSEC] 20 mg PO BIDAC #60 cap 02/05/18 [Rx] Brimonidine 0.2% [Alphagan] 1 drop LEFT EYE TID 02/10/18 [History] Dorzolamide [Trusopt] 1 drop LEFT EYE TID 02/10/18 [History] Glucosamn/Condroitn/C/Mn/[place] [[facility]vs Glucosamine Chondroitin Tb] 1 tab PO DAILY 02/10/18 [History] Latanoprost [Xalatan] 1 drop BOTH EYES QPM 02/10/18 [History] Metoclopramide [Reglan] 10 mg PO QID 02/10/18 [History] Multivitamin/Iron/Folic Acid [Certavite-Antioxidant Tablet] 1 tab PO DAILY 02/10/18 [History] Timolol Maleate 0.5% 1 drop BOTH EYES BID 02/10/18 [History] Gabapentin [Neurontin] 100 mg PO TID 03/09/18 [History] Allergy/AdvReac Type Severity Reaction Status Date / Time methadone [Methadone] Allergy See Verified 02/10/18 17:40 Comments Penicillins AdvReac See Verified 02/10/18 17:40 Comments All Systems PM: A 10-system review of systems was performed and is negative for pertinent findings except as documented above in the HPI. Review of systems: Constitutional: Denies fevers, chills, weight loss, generalized fatigue Head/Neck: Denies JOHNSON, neck stiffness EENT: Denies vision changes/blurriness, rhinorrhea, congestion, sore throat CVS: Denies palpitations, FENG, orthopnea, edema, PND. Admits to burning in her chest associated with abdominal pain Pulm: Denies SOB, cough, sputum, hemoptysis, wheezing GI: Denies melena, hematemasis. Admits to generalized abdominal pain, nausea, vomiting. : Denies increased frequency, urgency, hematuria. Admits to new urinary incontinence and dysuria Heme: Denies ease of bleeding or bruising MSK: Denies joint pain, limited ROM Skin: Denies rashes, ulcers, color changes Neuro: Denies JOHNSON, paresthesias, focal deficits, ataxia - Constitutional Vitals: Temp Pulse Resp BP Pulse Ox 98.5 F 66 19 96/60 98 03/08/18 13:34 03/08/18 17:12 03/08/18 17:12 03/08/18 17:12 03/08/18 17:12 Exam: Gen: Vitals noted. No acute distress. Patient appears very mildly hypovolemic. She appears weak and frail Eyes: anicteric sclerae, moist conjunctivae; no lid-lag; Pupils equal and reactive to light HENT: Atraumatic; oropharynx clear with moist mucous membranes and no mucosal ulcerations; normal hard and soft palate Neck: Trachea midline; supple, no thyromegaly or lymphadenopathy Cardiac: RRR, no murmur, +S1/S2 Pulmonary: CTA bilaterally, no wheezes, rales or rhonchi, equal chest expansion Abdomen: soft, no guarding. No masses or hepatosplenomegaly. Tenderness to palpation generally, especially noted in lower quadrants and suprapubic region. MSK: ROM intact, no joint swelling noted Extremities: no BLE edema, nontender calf, no cyanosis or clubbing Skin: Normal temperature, turgor and texture; no rash, ulcers or subcutaneous nodules Neuro: moves all extremities, no focal deficits. Psych: Appropriate mood and behavior. A&Ox3 Internal Med - H&P Results - Labs CBC & Chem 7: 03/08/18 14:08 03/08/18 14:08 Labs: Short CBC 03/08/18 Range/Units 14:08 WBC 9.0 (4.3-11.1) K/mcL Hgb 14.1 (11.5-15.4) g/dL Hct 42.7 (35.3-44.9) % Plt Count 340 (140-400) K/mcL Neutrophils # 5.5 (1.6-8.9) K/mcL BMP 03/08/18 14:08 Sodium 140 Potassium 3.7 Chloride 100 Carbon Dioxide 27 BUN 12 Creatinine 0.63 Glucose 86 Calcium 9.8 Cardiac Enzymes 03/08/18 Range/Units 14:08 Troponin I < 0.03 (< 0.04) ng/mL Liver Function 03/08/18 Range/Units 14:08 Total Bilirubin 0.9 (0.3-1.0) mg/dL AST 18 (13-39) Units/L ALT 8 (7-52) Units/L Alkaline Phosphatase 56 (34-104) Units/L Albumin 3.7 (3.5-5.7) g/dL Urine 03/08/18 Range/Units 15:42 Urine Color Dark Yellow (Yellow) Urine Clarity Clear (Clear) Urine pH 7.0 (5.0-8.0) pH Units Ur Specific [place] 1.028 H (1.010-1.025) Urine Protein 30 H (Neg-Trace) mg/dL Urine Glucose (UA) Normal (Normal) mg/dL - Impressions ITS Impressions Chest X-Ray 03/08/18 14:00 IMPRESSION: No acute cardiopulmonary disease. D/ / Alexis Osorio MD / Alexis Osorio MD Interpreting Provider: Aelxis Osorio MD Abdomen/Pelvis CT 03/08/18 14:09 IMPRESSION: No definite abnormality identified to explain the patient's right lower quadrant abdominal pain. There is a moderate amount of stool within the colon, suggesting possible constipation. New when compared to the previous exam is urothelial thickening and fat stranding surrounding the proximal left renal collecting system. This would suggest irritation/inflammation of the urothelium, possibly secondary to a mobile left renal calculus creating a ball-valve effect with resultant intermittent obstruction. Correlate with clinical evidence of left flank pain or urinary tract infection. 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 There is also urothelial wall thickening and mildly positive UA Plan Clear liquids this evening, nothing by mouth at midnight for GI consultation 0.9 NS @ 75mLs/hr maintenance Hold reglan as it does not seem to be helping Continue omeprazole BID Zofran PRN. Qualifiers: Vomiting type: unspecified Vomiting Intractability: unspecified Qualified Code(s): R11.2 - Nausea with vomiting, unspecified (2) Renal calculus, left Current Visit: Yes Status: Acute Assessment and plan: Left renal calculus, intermittently obstructive UA is indicative of probable complicated UTI Urology has been consulted from the ED, agrees to see the patient in consultation We will bladder scan the patient, determine if the patient is retaining urine Consider [place] catheter if so Treat pain with IV Toradol Treat UTI with Rocephin (3) Urinary tract infection Current Visit: Yes Status: Acute Assessment and plan: Acute complicated cystitis with microscopic hematuria in setting of left renal calculi Urology has been consulted for possible ureteral stent Treat with rocephin pending culture Qualifiers: Urinary tract infection type: acute cystitis Hematuria presence: with hematuria Qualified Code(s): N30.01 - Acute cystitis with hematuria (4) Constipation Current Visit: Yes Status: Acute Assessment and plan: Constipation, demonstrated on CT. May contribute to N/V Patient complains of infrequent bowel movements with small hard stools We will give rectal dulcolax today to stimulate BM Senna plus BID Consider enemas prn Qualifiers: Constipation type: unspecified constipation type Qualified Code(s): K59.00 - Constipation, unspecified (5) Atrial fibrillation Current Visit: Yes Status: Acute Assessment and plan: Atrial fibrillation, rate controlled on atenolol Patient is not on anticoagulation. [id number] We will discuss pros and cons of anticoagulation Qualifiers: Atrial fibrillation type: persistent Qualified Code(s): I48.1 - Persistent atrial fibrillation (6) Schatzki's ring Current Visit: No Status: Chronic Assessment and plan: As demonstrated on EGD from 02/02 Dilated during last admission (7) DVT prophylaxis Current Visit: No Status: Acute Assessment and plan: SQ Heparin (8) Abdominal pain Current Visit: Yes Status: Acute Assessment and plan: Suspected secondary to constipation vs. GERD Patient's complaint of "chest pain" is distinctly related to PO intake of food and liquid and is described as a burning in chest This is consistent with GI pain versus cardiac or vascular injury We will continue workup and treatment of GI sources of pain Qualifiers: Abdominal location: epigastric Qualified Code(s): R10.13 - Epigastric pain - Time Spent With Patient Total time spent is greater than 50% in coordination of care (as documented) at patient's floor/unit and/or counseling patient: <Emmanuel Ward - Last Filed: 03/09/18 17:28> Date of Encounter: 03/09/18 Internal Medicine - H&P: HPI History of present illness: Ms. Rubin is a 77 year old female All Systems PM: A 10-system review of systems was performed and is negative for pertinent findings except as documented above in the HPI. - Constitutional Vitals: Temp Pulse Resp BP Pulse Ox 98.3 F 64 16 116/54 93 03/09/18 11:26 03/09/18 17:18 03/09/18 17:18 03/09/18 17:18 03/09/18 17:18 Internal Med - H&P Results - Labs CBC & Chem 7: 03/09/18 09:07 03/09/18 05:30 Labs: Short CBC 03/09/18 03/09/18 Range/Units 05:30 09:07 WBC 5.0 (4.3-11.1) K/mcL Hgb 11.2 L D 11.5 (11.5-15.4) g/dL Hct 34.9 L 37.2 (35.3-44.9) % Plt Count 227 (140-400) K/mcL Neutrophils # 3.1 (1.6-8.9) K/mcL BMP 03/09/18 05:30 Sodium 142 Potassium 3.7 Chloride 109 H Carbon Dioxide 26 BUN 9 Creatinine 0.53 L Glucose 68 L Calcium 8.0 L Liver Function 03/09/18 Range/Units 05:30 Total Bilirubin 0.5 (0.3-1.0) mg/dL AST 15 (13-39) Units/L ALT 6 L (7-52) Units/L Alkaline Phosphatase 42 (34-104) Units/L Albumin 2.9 L (3.5-5.7) g/dL - Impressions ITS Impressions Chest X-Ray 03/08/18 14:00 IMPRESSION: No acute cardiopulmonary disease. D/ / Alexis Osorio MD / Alexis Osorio MD Interpreting Provider: Alexis Osorio MD Abdomen/Pelvis CT 03/08/18 14:09 IMPRESSION: No definite abnormality identified to explain the patient's right lower quadrant abdominal pain. There is a moderate amount of stool within the colon, suggesting possible constipation. New when compared to the previous exam is urothelial thickening and fat stranding surrounding the proximal left renal collecting system. This would suggest irritation/inflammation of the urothelium, possibly secondary to a mobile left renal calculus creating a ball-valve effect with resultant intermittent obstruction. Correlate with clinical evidence of left flank pain or urinary tract infection. D/ / Andrea Bales MD / Andrea Bales MD Interpreting Provider: Andrea Bales MD - Assessment and plan (1) Urinary tract infection Current Visit: Yes Status: Acute Qualifiers: Urinary tract infection type: acute cystitis Hematuria presence: with hematuria Qualified Code(s): N30.01 - Acute cystitis with hematuria (2) DVT prophylaxis Current Visit: No Status: Acute (3) Nausea and vomiting Current Visit: Yes Status: Acute Qualifiers: Vomiting type: unspecified Vomiting Intractability: unspecified Qualified Code(s): R11.2 - Nausea with vomiting, unspecified (4) Schatzki's ring Current Visit: No Status: Chronic (5) Renal calculus, left Current Visit: Yes Status: Acute (6) Constipation Current Visit: Yes Status: Acute Qualifiers: Constipation type: unspecified constipation type Qualified Code(s): K59.00 - Constipation, unspecified (7) Atrial fibrillation Current Visit: Yes Status: Acute Qualifiers: Atrial fibrillation type: persistent Qualified Code(s): I48.1 - Persistent atrial fibrillation (8) Abdominal pain Current Visit: Yes Status: Acute Qualifiers: Abdominal location: epigastric Qualified Code(s): R10.13 - Epigastric pain - Time Spent With Patient Total time spent is greater than 50% in coordination of care (as documented) at patient's floor/unit and/or counseling patient: - Attending Attestation I examined this patient and my medical decision-making was reviewed with the Resident Physician. I agree with the documented findings, disposition and treatment plan as described except to the extent set forth below.
[2018-03-08] MEDS ORDERED: Ondansetron 4 MG/2 ML VIAL IVP SCH (18:00)
[2018-03-08] MEDS ORDERED: Bisacodyl 10 MG RECTAL SUPPOSITORY RC ONE (18:24)
[2018-03-08] MEDS ORDERED: Ketorolac 15 MG/ML VIAL IVP PRN (18:43)
[2018-03-08] MEDS: 0.9 % Sodium Chloride 1,000 ML IVC SCH (18:55)
--- NOTE | 2018-03-08 20:08 | Event Note ---
Date of Encounter: 03/08/18 Time of Encounter: 20:[address] scan. I agree stone is likely ball valving and causing symptoms. will evaluate pt in AM but likely be placing ureteral stent tomorrow. pt made NPO
[2018-03-08] MEDS: Ondansetron 4 MG/2 ML VIAL IVP SCH (22:05)
[2018-03-08] MEDS: *HR* Heparin 5,000 UNIT/ML VIAL SQ SCH (22:05)
[2018-03-09] MEDS: Ondansetron 4 MG/2 ML VIAL IVP SCH ×4 (02:43→20:04)
[2018-03-09] MEDS: *HR* Heparin 5,000 UNIT/ML VIAL SQ SCH ×3 (06:16→21:33)
[2018-03-09 06:39] LABS: Basophils % 0.6 %; Eosinophils # 0.1 K/mcL (0.0-0.6); Eosinophils % 1.8 %; Hematocrit 34.9 % (35.3-44.9); Hemoglobin 11.2 g/dL (11.5-15.4); Immature Granulocytes % 0.2 % (0-4); Lymphocytes # 1.4 K/mcL (0.6-4.6); Lymphocytes % 27.9 %; Mean Corpuscular HGB Conc 32.1 g/dL (31.6-35.5); Mean Corpuscular Hemoglobin 28.5 pg (28.0-33.3); Mean Corpuscular Volume 88.8 fL (83.0-100.0); Mean Platelet Volume 10.8 fL (9.4-12.4); Monocytes # 0.4 K/mcL (0.0-1.3); Monocytes % 7.4 %; Neutrophils # 3.1 K/mcL (1.6-8.9); Platelet Count 227 K/mcL (140-400); Red Blood Count 3.93 M/mcL (3.82-4.97); Red Cell Distribution Width 14.5 % (11.5-14.5); Segmented Neutrophils % 62.1 %
[2018-03-09 06:51] LABS: Prothrombin Time 11.6 Seconds (9.4-12.1)
--- NOTE | 2018-03-09 06:58 | Electrocardiograph Report ---
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
[2018-03-09 07:00] LABS: Alanine Aminotransferase 6 Units/L (7-52); Albumin 2.9 g/dL (3.5-5.7); Albumin/Globulin Ratio 1.9 (1.1-2.2); Alkaline Phosphatase 42 Units/L (34-104); Aspartate Amino Transferase 15 Units/L (13-39); BUN/Creatinine Ratio 17 (6-26); Bilirubin,Total 0.5 mg/dL (0.3-1.0); Blood Urea Nitrogen 9 mg/dL (8-23); Carbon Dioxide 26 mEq/L (23-29); Chloride 109 mEq/L (98-107); Globulin 1.5 g/dL (2.4-3.5); Glucose 68 mg/dL (70-105); Magnesium 1.8 mg/dL (1.6-2.6); Osmolality,Calculated 291 (280-300); Phosphorous 2.4 mg/dL (2.7-4.5); Potassium 3.7 mEq/L (3.5-5.1); Sodium 142 mEq/L (136-145); Total Protein 4.4 g/dL (6.4-8.9); eGFR For Non-African Americans > 60 (> 60)
--- NOTE | 2018-03-09 07:52 | Urology - Consult Note ---
Date of Encounter: 03/09/18 Time of Encounter: 07:49 - Assessment and Plan (1) Renal calculus, left Current Visit: Yes Status: Acute Assessment and plan: I personally reviewed the CT scan and agree the stone is likely intermittently blocking the left kidney and certainly could be accounting for her abd pain and n/v. proceed with ureteral stent placement today. the procedure was discussed in detail including potential risk of injury to urinary tract, stricture, stent complication, infection. She will require a staged procedure to treat the stone - ESWL vs stone extraction. Urology CN:HPI Consult date: 03/09/18 History of present illness: new pt to the urology service. at least one month hx of abd pain, N/V and left flank pain. CT scan at admission with a 1 cm renal pelvis stone with mild hydro and stranding. no hx of stones. denies fever. has not felt well. Past Med Surg Social Fam HX - Past Medical History Medical history: atrial fibrillation, hypertension, myocardial infarction Psychiatric history: anxiety, depression - Past Surgical History Surgical History: cholecystectomy Additional surgical history: 2 left knee replacements. 1 right knee replacement. back. bilateral hips. right femur fx - Social History Smoking Status: Never smoker Smokeless Tobacco Status: No Alcohol use: none Drug use: none - Family History Mother Living Status: Father Living Status: Hx Family Cardiac Disorders: Yes Medications and Allergies Atenolol [Tenormin] 25 mg PO DAILY 02/03/18 [History] Estradiol [Estrace] 1 appl VG 2XW 02/03/18 [History] Mirabegron [Myrbetriq] 50 mg PO DAILY 02/03/18 [History] Solifenacin Succinate [Vesicare] 5 mg PO DAILY 02/03/18 [History] traZODone [TraZODone] 50 mg PO HS PRN 02/03/18 [History] Omeprazole [PriLOSEC] 20 mg PO BIDAC #60 cap 02/05/18 [Rx] Brimonidine 0.2% [Alphagan] 1 drop LEFT EYE TID 02/10/18 [History] Dorzolamide [Trusopt] 1 drop LEFT EYE TID 02/10/18 [History] Glucosamn/Condroitn/C/Mn/[place] [[facility]vs Glucosamine Chondroitin Tb] 1 tab PO DAILY 02/10/18 [History] Latanoprost [Xalatan] 1 drop LEFT EYE QPM 02/10/18 [History] Metoclopramide [Reglan] 10 mg PO QID 02/10/18 [History] Multivitamin/Iron/Folic Acid [Certavite-Antioxidant Tablet] 1 tab PO DAILY 1 04/13/17 [History] Pantoprazole Sodium [Protonix] 40 mg PO DAILY 02/10/18 [History] Timolol Maleate 0.5% 1 drop LEFT EYE DAILY 02/10/18 [History] Allergy/AdvReac Type Severity Reaction Status Date / Time methadone [Methadone] Allergy See Verified 02/10/18 17:40 Comments Penicillins AdvReac See Verified 02/10/18 17:40 Comments Review of Systems - Constitutional fatigue, weakness, no fever(s) - EENT Nose, mouth and throat: no dizziness - Cardiovascular no chest pain - Respiratory no cough - Gastrointestinal abdominal pain, nausea, vomiting - Musculoskeletal back pain - Integumentary no erythema - Neurological no confusion - Psychiatric no anxiety - Hematologic/Lymphatic no easy bleeding - Allergic/Immunologic no throat swelling Exam Initial Vital Signs Temp Pulse Resp BP Pulse Ox 98.5 F 75 18 112/96 100 03/08/18 13:34 03/08/18 13:34 03/08/18 13:34 03/08/18 13:34 03/08/18 13:34 - General physical appearance Present: well developed, no pain - Eyes Present: PERRL - ENT Present: normal nares - Neck Present: no masses - Respiratory Present: normal respiratory effort - Cardiovascular Cardiovascular exam IM: RRR - Abdomen Abdomen: Present: soft - Integumentary Present: no rash - Neurologic Absent: disoriented, confused Urology Results - Labs 03/09/18 05:30 03/09/18 05:30 Abnormal lab results Hgb 11.2 g/dL (11.5-15.4) L D 03/09/18 05:30 Hct 34.9 % (35.3-44.9) L 03/09/18 05:30 Chloride 109 mEq/L (98-107) H 03/09/18 05:30 Creatinine 0.53 mg/dL (0.60-1.20) L 03/09/18 05:30 Glucose 68 mg/dL (70-105) L 03/09/18 05:30 Calcium 8.0 mg/dL (8.6-10.3) L 03/09/18 05:30 Phosphorus 2.4 mg/dL (2.7-4.5) L 03/09/18 05:30 ALT 6 Units/L (7-52) L 03/09/18 05:30 Serum Total Protein 4.4 g/dL (6.4-8.9) L 03/09/18 05:30 Albumin 2.9 g/dL (3.5-5.7) L 03/09/18 05:30 Globulin 1.5 g/dL (2.4-3.5) L 03/09/18 05:30 Ur Specific [place] 1.028 (1.010-1.025) H 03/08/18 15:42 Urine Protein 30 mg/dL (Neg-Trace) H 03/08/18 15:42 Urine Ketones 40 mg/dL (Negative) H 03/08/18 15:42 Urine Bilirubin Small (Negative) H 03/08/18 15:42 Ur Leukocyte Esterase Moderate (Negative) H 03/08/18 15:42 Urine Microscopic RBC 5-15 per hpf (0-3) H 03/08/18 15:42 Urine Microscopic WBC 50-100 per hpf (0-3) H 03/08/18 15:42 Ur Squamous Epith Cells Many per lpf (None-Few) H 03/08/18 15:42 Ur Culture Indicated? NO. (NO) A 03/08/18 15:42 Diabetes panel 03/08/18 03/09/18 Range/Units 14:08 05:30 Sodium 140 142 (136-145) mEq/L Potassium 3.7 3.7 (3.5-5.1) mEq/L Chloride 100 109 H (98-107) mEq/L Carbon Dioxide 27 26 (23-29) mEq/L BUN 12 9 (8-23) mg/dL Creatinine 0.63 0.53 L (0.60-1.20) mg/dL Glucose 86 68 L (70-105) mg/dL Calcium 9.8 8.0 L (8.6-10.3) mg/dL AST 18 15 (13-39) Units/L ALT 8 6 L (7-52) Units/L Alkaline Phosphatase 56 42 (34-104) Units/L Albumin 3.7 2.9 L (3.5-5.7) g/dL Calcium panel 03/08/18 03/09/18 Range/Units 14:08 05:30 Calcium 9.8 8.0 L (8.6-10.3) mg/dL Phosphorus 2.4 L (2.7-4.5) mg/dL Albumin 3.7 2.9 L (3.5-5.7) g/dL Pituitary panel 03/08/18 03/09/18 Range/Units 14:08 05:30 Sodium 140 142 (136-145) mEq/L Potassium 3.7 3.7 (3.5-5.1) mEq/L Chloride 100 109 H (98-107) mEq/L Carbon Dioxide 27 26 (23-29) mEq/L BUN 12 9 (8-23) mg/dL Creatinine 0.63 0.53 L (0.60-1.20) mg/dL Glucose 86 68 L (70-105) mg/dL Calcium 9.8 8.0 L (8.6-10.3) mg/dL Adrenal panel 03/08/18 03/09/18 Range/Units 14:08 05:30 Sodium 140 142 (136-145) mEq/L Potassium 3.7 3.7 (3.5-5.1) mEq/L Chloride 100 109 H (98-107) mEq/L Carbon Dioxide 27 26 (23-29) mEq/L BUN 12 9 (8-23) mg/dL Creatinine 0.63 0.53 L (0.60-1.20) mg/dL Glucose 86 68 L (70-105) mg/dL Calcium 9.8 8.0 L (8.6-10.3) mg/dL Total Bilirubin 0.9 0.5 (0.3-1.0) mg/dL AST 18 15 (13-39) Units/L ALT 8 6 L (7-52) Units/L Alkaline Phosphatase 56 42 (34-104) Units/L Albumin 3.7 2.9 L (3.5-5.7) g/dL All other labs normal. Consult Discharge Plan - Plan Referrals: Alexis Love DO [Primary Care Provider] -
[2018-03-09] MEDS ORDERED: D5% in Water 1,000 ML IVC PRN ×2 (07:58→18:10)
[2018-03-09] MEDS ORDERED: *HR* Dextrose 50 % in Water (Syg) 50 ML SYRINGE IVP PRN ×2 (07:58→18:10)
[2018-03-09] MEDS ORDERED: Dextrose Gel 15 GM/37.5 ML TUBE PO PRN ×4 (07:58→18:10)
--- NOTE | 2018-03-09 08:13 | Internal Med Progress Note ---
<MichaelCaden R - Last Filed: 03/09/18 13:18> Hospitalist Progress Note - Encounter Date of Encounter: 03/09/18 Time of Encounter: 08:13 - Subjective Interval History: Mrs. Rubin is a 77 YO F with a PMHx of HTN, OH, A-fib, and admission in 2017 for n/v presented to the ED for ~2 week hx of worsening abdominal pain with n/v. She states that she has gotten so bad that she is afraid to eat or drink anything b/c she will get nauseated and vomit. She states she hasn't had a decent meal since around Robin and within the past 5 days hasn't been able to keep water down. She states that nothing has made the abdominal pain better. She states that the nausea is made better by not eating and that its made worse by eating and drinking fluids. She reports that her vomiting is non-foul smelling, non-bilious, non-bloody. She states that she will get nauseated and vomit within 30 minutes of eating or drinking. She states the abdominal pain was worse then the time she was admitted in January for. She states she has 2 - 3 BM per week and states the consistency is of robb and usually doesn't produce much. She denies any blood in her stool and admits to flatus on questioning. She reports that she has urinary incontinence and was at the doctor yesterday for the evaluation for pessary placement before the pain was so bad she had to go to the ED. She wears depends for UI. She reports no blood in her urine or painful urination. Today she states she's feeling much better, she denies any N/V this morning but she hasn't eaten anything this morning so she worries that the N/V will return when she does. She states she's had 3 loose BM since hospitalization. She reports non bloody stool with flatus. She reports some dizziness with standing but attributes it to her not being able to keep fluids down. She denies dizziness while sitting or headaches. She wishes to drink fluids but is currently NPO for ureteral stent placement this afternoon. She denies chest pain, SOB, dysuria, hematuria, or flank pain. Denies chills, fever, or night sweats. Admits to weight loss since January but doesn't know how much weight she has lost. She states that she needs to get up and walk while she is admitted due to femur fracture in Apr 05. She states that if she doesn't keep moving she gets stiff. - Exam Vitals: Temp Pulse Resp BP Pulse Ox 98.5 F 71 15 91/57 96 03/09/18 05:02 03/09/18 05:02 03/09/18 05:02 03/09/18 05:02 03/09/18 05:02 Exam: Gen: Pleasant, Alert and Oriented x 3, No acute distress Head: Normocephalic, atraumatic Eyes: EOMI, PERRL CV: Irregular rhythm, no murmurs, gallops or rubs Resp: CTA jassi, no wheezes, rales, or rhonchi GI: BS x4, soft and tender to deep palpation in the epigastrium, no rebound tenderness. Skin: Dry, w/o lesions or erythema, ecchymosis on forearm noted Extremities: Dorsalis pedis and radial pulses intact jassi. no UE or LE edema noted - Assessment and Plan (1) Nausea & vomiting Current Visit: Yes Status: Acute Assessment and Plan: Patient states that her n/v is improved today She has had n/v for the past ~ 2 weeks She hasn't been eating solid foods, not able to keep fluids down Patient presented in January of 2018 with similar symptoms. Schatzki ring was found and dilated 02/10/18 Patient has PRN Zofran Gastro consulted appreciate recommendation Plan: Continue PRN Zofran, Gastro consulted, recommendations appreciated, continue to monitor and provide IV fluids (2) Abdominal pain Current Visit: Yes Status: Acute Assessment and Plan: Patient states that her pain, n/v has improved today Patient CT showed constipation and L renal calculus Patient on PRN Zofran for nausea Patient on Ceftriaxone for possible UTI cause of abdominal pain, initial UA was contaminated Patient constipation treated with Senna +; has had 3 loose BM since being admitted Patient had hospitalization for abdominal pain, n/v on 02/03/18 02/10/19 EGD with biopsy negative for malignancy, Schatzki ring in the lower 1/3 of the esophagus dilated, patient handled procedure well. Plan: Clean catch UA ordered; Gastro consulted, recommendations appreciated; continue to use Zofran PRN for nausea; hold Senna +, add Colace for constipation, continue Ceftriaxone for empiric treatment of UTI (3) Renal calculus, left Current Visit: Yes Status: Acute Assessment and Plan: Patient had CT on admission that showed L renal calculus (Intermittent block) Patient has no urinary complaints or flank pain Patient kidney function intact (Cr = 0.53) Patient hasn't been drinking fluids to n/v Urology consulted last night Plan: Urology will place ureteral stents this afternoon, patient NPO. Urology plans to follow up in 3 weeks for removal of L renal calculus (4) Constipation Current Visit: Yes Status: Acute Assessment and Plan: Patient admits to 3 BM since yesterday, 1 BM this morning. BM consistency has been loose, non bloody stool, admits to flatus Patient had CT on admission that demonstrated on CT Patient admits to 2 - 3 stools/ week, with pebble like consistency Patient had rectal dulcolax and Senna + last night Plan: Hold Senna +, add Colace. Monitor for constipation (5) Atrial fibrillation Current Visit: Yes Status: Acute Assessment and Plan: Patient is currently in A - fib that is rate controlled CHADVASC score = 3 (Age, Gender, HTN) Home meds: atenolol at for rate control Patient not on anticoagulation due to femur fracture and worry about a fall at home Patient was educated on the risk and benefit of anticoagulation Patient decided to use ASA 81mg for anticoagulation Plan: Discuss with patient the risk/benefit of anticoagulation therapy now that she is more stable from femur fracture. Consult PT/OT for evaluation (6) Schatzki's ring Current Visit: No Status: Chronic Assessment and Plan: 03/08/18 patient presents for worsening N/V and abdominal pain 01/2018: Patient presented to the ED with N/V and abdominal pain 02/02/18: Patient had EGD by Dr. Conway showed mild Schatzki ring in the lower 1/3 of esophagus as well as hiatal hernia 02/10/18: Patient had dilation of Schatzki's ring on with no complication Plan: Consult Gastro, appreciate recommendation (7) Anemia Current Visit: Yes Status: Acute Assessment and Plan: Patient HGB on admission 14.1 Patient HGB this AM was 11.2 Patient HGB repeated this AM was 11.5 Patient HGB trends between 11 - 12 Patient HGB on admission may have been due to volume contraction due to emesis Patient has no signs of blood loss Plan: Continue to follow HGB tomorrow morning. Monitor for signs of symptoms of acute bleed. DVT Prophylaxis: Subq Heparin 5000 units - Time Spent with Patient Total time spent is greater than 50% in coordination of care (as documented) at patient's floor/unit and/or counseling patient: 25 - 35 minutes Plan of Care Discussed with: patient Internal Medicine: Result - Labs CBC & Chem 7: 03/09/18 09:07 03/09/18 05:30 Labs: Short CBC 03/08/18 03/09/18 Range/Units 14:08 05:30 WBC 9.0 5.0 (4.3-11.1) K/mcL Hgb 14.1 11.2 L D (11.5-15.4) g/dL Hct 42.7 34.9 L (35.3-44.9) % Plt Count 340 227 (140-400) K/mcL Neutrophils # 5.5 3.1 (1.6-8.9) K/mcL BMP 03/08/18 03/09/18 14:08 05:30 Sodium 140 142 Potassium 3.7 3.7 Chloride 100 109 H Carbon Dioxide 27 26 BUN 12 9 Creatinine 0.63 0.53 L Glucose 86 68 L Calcium 9.8 8.0 L Cardiac Enzymes 03/08/18 Range/Units 14:08 Troponin I < 0.03 (< 0.04) ng/mL Liver Function 03/08/18 03/09/18 Range/Units 14:08 05:30 Total Bilirubin 0.9 0.5 (0.3-1.0) mg/dL AST 18 15 (13-39) Units/L ALT 8 6 L (7-52) Units/L Alkaline Phosphatase 56 42 (34-104) Units/L Albumin 3.7 2.9 L (3.5-5.7) g/dL Urine 03/08/18 Range/Units 15:42 Urine Color Dark Yellow (Yellow) Urine Clarity Clear (Clear) Urine pH 7.0 (5.0-8.0) pH Units Ur Specific [place] 1.028 H (1.010-1.025) Urine Protein 30 H (Neg-Trace) mg/dL Urine Glucose (UA) Normal (Normal) mg/dL - ABG Interpretation ABG results: PT/INR, D-dimer PT 11.6 Seconds (9.4-12.1) 03/09/18 05:30 - Impressions Impressions Chest X-Ray 03/08/18 14:00 IMPRESSION: No acute cardiopulmonary disease. D/ / Alexis Osorio MD / Alexis Osorio MD Interpreting Provider: Alexis Osorio MD Abdomen/Pelvis CT 03/08/18 14:09 IMPRESSION: No definite abnormality identified to explain the patient's right lower quadrant abdominal pain. There is a moderate amount of stool within the colon, suggesting possible constipation. New when compared to the previous exam is urothelial thickening and fat stranding surrounding the proximal left renal collecting system. This would suggest irritation/inflammation of the urothelium, possibly secondary to a mobile left renal calculus creating a ball-valve effect with resultant intermittent obstruction. Correlate with clinical evidence of left flank pain or urinary tract infection. D/ / Andrea Bales MD / Andrea Bales MD Interpreting Provider: Andrea Bales MD Consult Discharge Plan - Plan Referrals: Alexis Love DO [Primary Care Provider] - <EdNorah Doroteopablo - Last Filed: 03/09/18 18:38> Hospitalist Progress Note - Encounter Date of Encounter: 03/09/18 - Exam Vitals: Temp Pulse Resp BP Pulse Ox 98.3 F 64 16 116/54 93 03/09/18 11:26 03/09/18 17:18 03/09/18 17:18 03/09/18 17:18 03/09/18 17:18 - Assessment and Plan (1) Urinary tract infection Current Visit: Yes Status: Acute (2) DVT prophylaxis Current Visit: No Status: Acute (3) Nausea and vomiting Current Visit: Yes Status: Acute (4) Schatzki's ring Current Visit: No Status: Chronic (5) Renal calculus, left Current Visit: Yes Status: Acute (6) Constipation Current Visit: Yes Status: Acute (7) Atrial fibrillation Current Visit: Yes Status: Acute (8) Abdominal pain Current Visit: Yes Status: Acute - Time Spent with Patient Total time spent is greater than 50% in coordination of care (as documented) at patient's floor/unit and/or counseling patient: Internal Medicine: Result - Labs CBC & Chem 7: 03/09/18 09:07 03/09/18 05:30 Labs: Short CBC 03/09/18 03/09/18 Range/Units 05:30 09:07 WBC 5.0 (4.3-11.1) K/mcL Hgb 11.2 L D 11.5 (11.5-15.4) g/dL Hct 34.9 L 37.2 (35.3-44.9) % Plt Count 227 (140-400) K/mcL Neutrophils # 3.1 (1.6-8.9) K/mcL BMP 03/09/18 05:30 Sodium 142 Potassium 3.7 Chloride 109 H Carbon Dioxide 26 BUN 9 Creatinine 0.53 L Glucose 68 L Calcium 8.0 L Liver Function 03/09/18 Range/Units 05:30 Total Bilirubin 0.5 (0.3-1.0) mg/dL AST 15 (13-39) Units/L ALT 6 L (7-52) Units/L Alkaline Phosphatase 42 (34-104) Units/L Albumin 2.9 L (3.5-5.7) g/dL - ABG Interpretation ABG results: PT/INR, D-dimer PT 11.6 Seconds (9.4-12.1) 03/09/18 05:30 - Attending Attestation I examined this patient and my medical decision-making was reviewed with the Resident Physician and Medical Student. I agree with the documented findings, disposition and treatment plan as described except to the extent set forth below. Patient feels a little better today but dysphasia persists. VS: reviewed, Physical exam shows frail female in no acute distress, MM dry, lung sounds CTAB, cardiac: RRR. Plan: continue IV fluids, NPO, GI evaluation, Urology evaluation, Rocephin. <Caden Rodriguez - Last Filed: 03/09/18 13:18> (1) Nausea & vomiting Qualifiers: Vomiting type: unspecified Vomiting Intractability: unspecified Qualified Code(s): R11.2 - Nausea with vomiting, unspecified (2) Abdominal pain Qualifiers: Abdominal location: epigastric Qualified Code(s): R10.13 - Epigastric pain (4) Constipation Qualifiers: Constipation type: unspecified constipation type Qualified Code(s): K59.00 - Constipation, unspecified (5) Atrial fibrillation Qualifiers: Atrial fibrillation type: persistent Qualified Code(s): I48.1 - Persistent atrial fibrillation (7) Anemia Qualifiers: Anemia type: unspecified type Qualified Code(s): D64.9 - Anemia, unspecified <Ghanem,Norah Rheem - Last Filed: 03/09/18 18:38> (1) Urinary tract infection Qualifiers: Urinary tract infection type: acute cystitis Hematuria presence: with hematuria Qualified Code(s): N30.01 - Acute cystitis with hematuria (3) Nausea and vomiting Qualifiers: Vomiting type: unspecified Vomiting Intractability: unspecified Qualified Code(s): R11.2 - Nausea with vomiting, unspecified (6) Constipation Qualifiers: Constipation type: unspecified constipation type Qualified Code(s): K59.00 - Constipation, unspecified (7) Atrial fibrillation Qualifiers: Atrial fibrillation type: persistent Qualified Code(s): I48.1 - Persistent atrial fibrillation (8) Abdominal pain Qualifiers: Abdominal location: epigastric Qualified Code(s): R10.13 - Epigastric pain
[2018-03-09] MEDS ORDERED: D5% in 0.45% NACL 1,000 ML IVC SCH (08:15)
[2018-03-09] MEDS ORDERED: cefTRIAXone 1,000 MG in Water for inj. (sterile) 20 ML 10 ML IVP SCH (09:00)
[2018-03-09] MEDS ORDERED: Sennosides/Docusate Sodium TABLET PO SCH (09:00)
[2018-03-09 09:18] LABS: Hematocrit 37.2 % (35.3-44.9); Hemoglobin 11.5 g/dL (11.5-15.4)
--- NOTE | 2018-03-09 11:44 | Gastroenterology Consult Note ---
<Alexi Cobos Adryan - Last Filed: 03/09/18 11:38> Date of Encounter: 03/09/18 Time of Encounter: 10:10 - Assessment and plan (1) Renal calculus, left Current Visit: Yes Status: Acute Assessment and plan: Management per Urology. (2) Nausea and vomiting Current Visit: Yes Status: Acute Assessment and plan: Likely secondary to renal calculus. Once stone is out, symptoms should improve. Continue symptomatic treatment. Will hold on EGD at this time. If symptoms do not improve after stone removal, will consider EGD. Qualifiers: Vomiting type: unspecified Vomiting Intractability: unspecified Qualified Code(s): R11.2 - Nausea with vomiting, unspecified - Time Spent With Patient Total time spent is greater than 50% in coordination of care (as documented) at patient's floor/unit and/or counseling patient: GI History of Present Illness - Data of Consult Patient: known to practice within the last 3 years Consult date: 03/09/18 Requesting Physician: Emmanuel Ward MD - Consult Narrative Reason for consult: Nausea, Vomiting, abd pain History of present illness: Ms. Rubin is a 77 year old female with PMHx of Afib, HTN, [place], anxiety, who presented to the ED with c/o worsening abdominal pain, nausea, vomiting, and being unable to "keep anything down". She states any eating or drinking make her symptoms worse. Recent EGD 02/10/2018 with mild Schatzki ring dilated, gastric stenosis dilated. On admission CT A/P with moderate stool in the colon suggesting possible constipation as well as urothelial thickening and fat stranding surrounding the proximal left renal collecting system suggestive of the left renal calculus that may lead to intermittent obstruction. She states she is feeling better this morning compared to yesterday. Procedures: EGD 02/10/2018 Dr. Conway: Mild Schatzki ring dilated, gastric attila nosis dilated. EGD 02/03/2018 Dr. Conway: Mild Schatzki ring lower third of esophagus, 2 cm hiatal hernia, benign-appearing, intrinsic moderate stenosis found in the stomach, biopsies negative. NSAIDs: None Anticoagulation: None Past Med Surg Social Fam HX - Past Medical History Medical history: atrial fibrillation, hypertension, myocardial infarction Psychiatric history: anxiety, depression - Past Surgical History Surgical History: cholecystectomy Additional surgical history: 2 left knee replacements. 1 right knee replacement. back. bilateral hips. right femur fx - Social History Smoking Status: Never smoker Smokeless Tobacco Status: No Alcohol use: none Drug use: none - Family History Mother Living Status: Father Living Status: Hx Family Cardiac Disorders: Yes - Gastrointestinal Gastrointestinal: Present: as per HPI - Constitutional Constitutional: as per HPI - EENT Eyes: as per HPI Ears: Present: as per HPI Nose, mouth and throat: Present: as per HPI - Cardiovascular Cardiovascular ROS: Present: as per HPI - Respiratory Respiratory IM: Present: as per HPI - Genitourinary Genitourinary: Absent: change in color, Urinary frequency - Neurological ROS Neurological GI: Present: as per HPI - Hematologic/Lymphatic Hematologic/Lymphatic pediatric: Present: as per HPI - Musculoskeletal Musculoskeletal ROS GI: Present: as per HPI - Integumentary Integumentary GI: Present: as per HPI - Psychiatric ROS Psychiatric GI: Present: as per HPI - Endocrine Endocrine IM: Present: as per HPI - Constitutional Vitals: Temp Pulse Resp BP Pulse Ox 98.3 F 70 16 107/63 96 03/09/18 11:26 03/09/18 11:26 03/09/18 11:26 03/09/18 11:26 03/09/18 11:26 General appearance: Present: cooperative, A&O X 3, no acute distress, answers questions appropriately - Head Head exam: Present: atraumatic, normocephalic - Eye Eye exam: Present: normal appearance, sclera anicteric - ENT ENT exam: Present: mucous membranes dry - Neck Neck exam general surgery: Present: normal inspection, trachea midline - Respiratory Respiratory exam: Present: decreased breath sounds, CTAB - Cardiovascular Cardiovascular exam: Present: RRR, +S1, +S2 - GI/Abdominal GI/Abdominal exam: Present: soft, tenderness (epigastric), no peritoneal signs. Absent: distended, firm, guarding - Rectal Rectal exam: Present: deferred - Extremities Exam Extremities exam: Present: warm - Neurological Exam Neurological exam: Present: no focal deficits - Psychiatric Psychiatric exam: Present: normal affect, normal mood - Skin Skin exam: Present: dry, intact, normal color, warm Results - Labs CBC & Chem 7: 03/09/18 09:07 03/09/18 05:30 Labs: Last Result Calcium 8.0 mg/dL (8.6-10.3) L 03/09/18 05:30 Troponin I < 0.03 ng/mL (< 0.04) 03/08/18 14:08 Entire Visit Hgb 11.5 g/dL (11.5-15.4) 03/09/18 09:07 Hct 37.2 % (35.3-44.9) 03/09/18 09:07 PT 11.6 Seconds (9.4-12.1) 03/09/18 05:30 Total Bilirubin 0.5 mg/dL (0.3-1.0) 03/09/18 05:30 AST 15 Units/L (13-39) 03/09/18 05:30 ALT 6 Units/L (7-52) L 03/09/18 05:30 Lipase 17 Units/L (11-82) 03/08/18 14:08 - ABG ABG results: PT/INR, D-dimer PT 11.6 Seconds (9.4-12.1) 03/09/18 05:30 - Impressions Impressions Chest X-Ray 03/08/18 14:00 IMPRESSION: No acute cardiopulmonary disease. D/ / Alexis Osorio MD / Alexis Osorio MD Interpreting Provider: Alexis Osorio MD Abdomen/Pelvis CT 03/08/18 14:09 IMPRESSION: No definite abnormality identified to explain the patient's right lower quadrant abdominal pain. There is a moderate amount of stool within the colon, suggesting possible constipation. New when compared to the previous exam is urothelial thickening and fat stranding surrounding the proximal left renal collecting system. This would suggest irritation/inflammation of the urothelium, possibly secondary to a mobile left renal calculus creating a ball-valve effect with resultant intermittent obstruction. Correlate with clinical evidence of left flank pain or urinary tract infection. D/ / Andrea Bales MD / Andrea Bales MD Interpreting Provider: Andrea Bales MD Consult Discharge Plan - Plan Referrals: Alexis Love DO [Primary Care Provider] - <Kiki Ortiz - Last Filed: 03/09/18 17:18> Date of Encounter: 03/09/18 Time of Encounter: 15:00 - Time Spent With Patient Total time spent is greater than 50% in coordination of care (as documented) at patient's floor/unit and/or counseling patient: GI History of Present Illness - Data of Consult Requesting Physician: Emmanuel Ward MD - Consult Narrative History of present illness: Ms. Rubin is a 77 year old female - Constitutional Vitals: Temp Pulse Resp BP Pulse Ox 98.3 F 74 15 114/64 96 03/09/18 11:26 03/09/18 16:59 03/09/18 16:59 03/09/18 16:59 03/09/18 16:59 Results - Labs CBC & Chem 7: 03/09/18 09:07 03/09/18 05:30 Labs: Last Result Calcium 8.0 mg/dL (8.6-10.3) L 03/09/18 05:30 Troponin I < 0.03 ng/mL (< 0.04) 03/08/18 14:08 Entire Visit Hgb 11.5 g/dL (11.5-15.4) 03/09/18 09:07 Hct 37.2 % (35.3-44.9) 03/09/18 09:07 PT 11.6 Seconds (9.4-12.1) 03/09/18 05:30 Total Bilirubin 0.5 mg/dL (0.3-1.0) 03/09/18 05:30 AST 15 Units/L (13-39) 03/09/18 05:30 ALT 6 Units/L (7-52) L 03/09/18 05:30 Lipase 17 Units/L (11-82) 03/08/18 14:08 - ABG ABG results: PT/INR, D-dimer PT 11.6 Seconds (9.4-12.1) 03/09/18 05:30 - Attending Attestation I have personally performed a face to face evaluation on this patient. I have reviewed and agree with the care plan. History and Exam by me shows: Patient seen. Complaining of abdominal pain. On examination: Has left flank tenderness. Assessment: Patient with kidney stone with recurrent nausea and vomiting. Has been seen by urology. ReC: Most probably her GI symptoms are due to kidney stone. No need for any scoping symptomatic treatment
[2018-03-09] MEDS: 0.9 % Sodium Chloride 1,000 ML IVC SCH (13:13)
[2018-03-09] MEDS ORDERED: Ondansetron 4 MG/2 ML VIAL ONE (17:18)
[2018-03-09] MEDS ORDERED: *HR* Propofol 200 MG/20 ML VIAL IVP ONE (17:18)
[2018-03-09] MEDS ORDERED: *HR* FentaNYL (PF) 100 MCG/2 ML VIAL ONE (17:18)
[2018-03-09] MEDS ORDERED: Dexamethasone 4 MG/ML VIAL ONE (17:18)
[2018-03-09] MEDS ORDERED: Lidocaine -MPF 2% 2 ML VIAL ONE (17:18)
--- NOTE | 2018-03-09 17:22 | Anesthesia Evaluation PreOp ---
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: Other (Anxiety/Depression) Other Medical History: Renal (stones) Anesthesia History: No Prior Anesthetic Complications, Past Anesthesia (L-TKR x 2, R-TKR, BAck surgery, B-Hips, R-Femur ["still learning how to walk on it"], Hyster) Alcohol Use: none Drug use: none Medications and Allergies Atenolol [Tenormin] 25 mg PO DAILY 02/03/18 [History] Estradiol [Estrace] 1 appl VG 2XW 02/03/18 [History] Mirabegron [Myrbetriq] 50 mg PO DAILY 02/03/18 [History] Solifenacin Succinate [Vesicare] 5 mg PO DAILY 02/03/18 [History] traZODone [TraZODone] 50 mg PO HS PRN 02/03/18 [History] Omeprazole [PriLOSEC] 20 mg PO BIDAC #60 cap 02/05/18 [Rx] Brimonidine 0.2% [Alphagan] 1 drop LEFT EYE TID 02/10/18 [History] Dorzolamide [Trusopt] 1 drop LEFT EYE TID 02/10/18 [History] Glucosamn/[place]/C/Mn/[place] [[facility] Glucosamine Chondroitin Tb] 1 tab PO DAILY 02/10/18 [History] Latanoprost [Xalatan] 1 drop BOTH EYES QPM 02/10/18 [History] Metoclopramide [Reglan] 10 mg PO QID 02/10/18 [History] Multivitamin/Iron/Folic Acid [Certavite-Antioxidant Tablet] 1 tab PO DAILY 02/10/18 [History] Timolol Maleate 0.5% 1 drop BOTH EYES BID 02/10/18 [History] Gabapentin [Neurontin] 100 mg PO TID 03/09/18 [History] Allergy/AdvReac Type Severity Reaction Status Date / Time methadone [Methadone] Allergy See Verified 02/10/18 17:40 Comments Penicillins AdvReac See Verified 02/10/18 17:40 Comments - Meds/Allergy Pre-op Review Medications Reviewed: Yes Allergies Reviewed: Yes Beta Blockers on Current Med List: Yes (Atenolol) If Beta Blockers taken, Date/Time (Last Dose taken): 03/09/2018 @ 0831 Anesthesia Results - Labs 03/09/18 09:07 03/09/18 05:30 Laboratory Results Laboratory Tests 03/09/18 03/09/18 05:30 05:30 PT 11.6 INR 1.0 Est GFR (Non-Af Amer) > 60 Calcium 8.0 L Phosphorus 2.4 L Magnesium 1.8 Impressions Chest X-Ray 03/08/18 14:00 IMPRESSION: No acute cardiopulmonary disease. D/ / Alexis Osorio MD / Alexis Osorio MD Interpreting Provider: Alexis Osorio MD Abdomen/Pelvis CT 03/08/18 14:09 IMPRESSION: No definite abnormality identified to explain the patient's right lower quadrant abdominal pain. There is a moderate amount of stool within the colon, suggesting possible constipation. New when compared to the previous exam is urothelial thickening and fat stranding surrounding the proximal left renal collecting system. This would suggest irritation/inflammation of the urothelium, possibly secondary to a mobile left renal calculus creating a ball-valve effect with resultant intermittent obstruction. Correlate with clinical evidence of left flank pain or urinary tract infection. D/ / Andrea Bales MD / Andrea Bales MD Interpreting Provider: Andrea Bales MD - Imaging EKG: image reviewed (79bpm -Sinus arrhythmia Electronically Signed On 03-09-2018 6:56:49 EST by Jordi Davey) Anesthesia Exam Vital Signs Temp Pulse Resp BP Pulse Ox 03/09/18 17:18 64 16 116/54 93 03/09/18 16:59 74 15 114/64 96 03/09/18 11:26 98.3 F 70 16 107/63 96 03/09/18 08:22 99.1 F 66 14 97/63 94 03/09/18 05:02 98.5 F 71 15 91/57 96 03/09/18 00:55 97.8 F 67 15 94/60 95 03/08/18 18:25 97.6 F 61 14 108/62 96 03/08/18 18:03 17 95/69 03/08/18 17:51 67 18 96/73 99 Intake and Output 03/09/18 03/09/18 03/09/18 07:59 15:59 23:59 Intake Total 0 / 0 810 / 810 Output Total 0 / 0 200 / 200 Balance 0 / 0 610 / 610 Intake: IV Fluids 810 / 810 0.9 % Sodium Chloride 1,000 ML 800 / 800 @ 75 mls/hr IVC .[id number] [facility] Rx #:[id number] Rocephin 1,000 MG In Water for inj. 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 CONTROL ELECTRONIC TECHNICIAN Motor: Normal RUE, Normal LUE, Normal RLE, Normal LLE, Normal Face TRAIN CONTROL ELECTRONIC TECHNICIAN Sensory: Normal: RUE, LUE, RLE, LLE, Face - Cardiac Rhythm: Regular Murmur: None JVD: No - Pulmonary Breath Sounds: bilateral Clear Respiratory Effort: Symmetrical Anesthesia Assess/Plan ASA Score: 3 (CAD, HTN, Paroxysmal AFib, Anxiety/Depression, Kidney stones) Level of consciousness: Cooperative, Oriented, Tranquil Anesthetic Plan: General Monitoring Plan: Standard Monitors Recovery Plan: PACU Anes Supervising Prov Stmt: Pt seen/evaluated, R&B discussed, questions answered and consent obtained. Shavonne Charlton MD
[2018-03-09] MEDS ORDERED: Acetaminophen IV 1,000 MG/100 ML INFUS..BTL ONE (17:31)
[2018-03-09] MEDS ORDERED: Isovue-300 50 ML VIAL ONE (17:37)
[2018-03-09] MEDS ORDERED: Metoclopramide 10 MG/2 ML VIAL ONE (17:44)
[2018-03-09] MEDS ORDERED: EPHEDrine 50 MG/ML VIAL ONE (17:55)
[2018-03-09] MEDS ORDERED: Naloxone 0.4 MG/ML INJ IVP PRN (18:10)
--- NOTE | 2018-03-09 18:38 | Operative Note ---
Date of procedure: 03/09/18 Pre-op diagnosis: Left renal pelvis stone Post-op diagnosis: same Procedure: Cystoscopy left retrograde pyelogram left ureteral stent placement Anesthesia: GETA Surgeon: Tucker Borges Was there an real estate administrative assistant present: No Estimated blood loss (cc): 0 Specimen: none Condition: stable Disposition: PACU Procedure in Detail: PROCEDURE IN DETAIL: Patient was taken back to the operating room, positioned supine on the operating table. Anesthesia was applied without complication. They were moved into dorsal lithotomy. Careful attention was maintained to cushion all pressure points for patient's safety. They were prepped and draped in sterile fashion. Time-out was performed with the proper patient and procedure. A 21-[place] rigid cystoscope was inserted into the bladder without difficulty. Systematic examination of bladder revealed no abnormalities. The left ureteral orifice was difficult to identify as it was displaced quite laterally and near the bladder neck. I eventually was able to cannulate the UO using a 5-[place] ureteral Catheter and a retrograde pyelogram was performed using Isovue. There was a significant J hook at the distal ureter but I was eventually able to straighten the distal ureter using the 5-[place] ureteral catheter. A filling defect was identified which corresponded to the stone in the renal pelvis. At that point, a zip wire was placed through the 5-[place] and confirmed in the renal pelvis with fluoroscopy. I placed a 4.8 x 26 ureteral stent and did not leave a string attached. The patient will require outpatient surgical management of the stone which will potentially be ESWL
[2018-03-09] MEDS: Latanoprost 2.5 ML BOTTLE BOTH EYES SCH (20:12)
[2018-03-09] MEDS: D5% in 0.45% NACL 1,000 ML IVC SCH (20:12)
--- NOTE | 2018-03-09 20:29 | Anesthesia Evaluation Post Op ---
Date of Encounter: 03/09/18 Time of Encounter: 19:00 - Vital Signs Vital Signs: Vital Signs/O2 Sat/Glucose, Most Current Temp Pulse Resp BP Pulse Ox 03/09/18 18:57 97.4 F L 62 18 106/57 99 03/09/18 18:47 64 16 106/54 99 03/09/18 18:37 60 16 108/61 92 03/09/18 18:27 97.8 F 69 16 119/63 96 03/09/18 17:18 64 16 116/54 93 03/09/18 16:59 74 15 114/64 96 - Lungs Lungs: Clear Ascult./Percussion - Airway Airway: Non-obstructed - Cardiovascular Baseline Rhythm - Mental Status Mental Status: Alert & Oriented, Answers Appropriately - Pain Pain Scale: 1 Pain Scale used: Numeric (1 - 10) - Nausea Vomiting Nausea Vomiting: Not Present - Hydration Hydration: Ice chips - Discharge PostOp Status: Transfer Patient to floor Anes Supervising Prov Stmt: Pt seen/evaluated, VSS and has met criteria for discharge to floor. - MD Latesha
[2018-03-09] MEDS: Gabapentin 100 MG CAPSULE PO SCH (21:27)
[2018-03-09] MEDS: Dorzolamide OPTH 10 ML BOTTLE LEFT EYE SCH (21:32)
[2018-03-09] MEDS: traZODone 50 MG TABLET PO PRN (23:44)
[2018-03-10] MEDS: Ondansetron 4 MG/2 ML VIAL IVP SCH ×4 (02:47→20:40)
[2018-03-10] MEDS: D5% in 0.45% NACL 1,000 ML IVC SCH ×2 (06:15→13:40)
[2018-03-10] MEDS: *HR* Heparin 5,000 UNIT/ML VIAL SQ SCH ×3 (06:17→20:42)
[2018-03-10 07:44] LABS: Basophils % 0.4 %; Hematocrit 38.7 % (35.3-44.9); Hemoglobin 12.1 g/dL (11.5-15.4); Immature Granulocytes % 0.4 % (0-4); Lymphocytes # 1.1 K/mcL (0.6-4.6); Lymphocytes % 20.8 %; Mean Corpuscular HGB Conc 31.3 g/dL (31.6-35.5); Mean Corpuscular Hemoglobin 27.9 pg (28.0-33.3); Mean Corpuscular Volume 89.4 fL (83.0-100.0); Mean Platelet Volume 10.6 fL (9.4-12.4); Monocytes # 0.3 K/mcL (0.0-1.3); Monocytes % 4.7 %; Neutrophils # 3.9 K/mcL (1.6-8.9); Platelet Count 244 K/mcL (140-400); Red Blood Count 4.33 M/mcL (3.82-4.97); Red Cell Distribution Width 14.2 % (11.5-14.5); Segmented Neutrophils % 73.7 %
[2018-03-10 08:02] LABS: BUN/Creatinine Ratio 13 (6-26); Blood Urea Nitrogen 7 mg/dL (8-23); Calcium 7.9 mg/dL (8.6-10.3); Carbon Dioxide 28 mEq/L (23-29); Chloride 109 mEq/L (98-107); Glucose 123 mg/dL (70-105); Osmolality,Calculated 289 (280-300); Sodium 140 mEq/L (136-145); eGFR For Non-African Americans > 60 (> 60)
[2018-03-10] MEDS: cefTRIAXone 1,000 MG in Water for inj. (sterile) 20 ML 10 ML IVP SCH (08:23)
[2018-03-10] MEDS: Ketorolac 15 MG/ML VIAL IVP PRN (08:23)
[2018-03-10] MEDS: Aspirin 81 MG TAB.CHEW PO SCH (08:24)
[2018-03-10] MEDS: Gabapentin 100 MG CAPSULE PO SCH ×3 (08:24→20:40)
[2018-03-10] MEDS: Dorzolamide OPTH 10 ML BOTTLE LEFT EYE SCH ×3 (08:31→20:44)
[2018-03-10] MEDS ORDERED: Aspirin 81 MG TAB.CHEW PO SCH (09:00)
--- NOTE | 2018-03-10 09:04 | Urology Progress Note ---
<Scarlett Kilgore N - Last Filed: 03/10/18 09:01> Date of Encounter: 03/10/18 Time of Encounter: 08:30 - Assessment and Plan (1) Urinary tract infection Current Visit: Yes Status: Acute Assessment and plan: Patient is a 77-year-old female who presents with a left renal stone and urinary tract infection. Vital signs are stable and afebrile. White blood cell count and renal function are reassuring. Patient is receiving IV Rocephin. Qualifiers: Urinary tract infection type: acute cystitis Hematuria presence: with hematuria Qualified Code(s): N30.01 - Acute cystitis with hematuria (2) Renal calculus, left Current Visit: Yes Status: Acute Assessment and plan: Patient is a 77-year-old female who presents one day status post cystoscopy, left retrograde pyelogram, left ureteral stent placement. Vital signs are currently stable and afebrile. Discussed postoperative expectations with indwelling ureteral stent. Patient is aware she will require a staged stone extraction procedure. Progress Note Narrative: POD #1. Patient seen and examined lying in bed in no apparent distress. Patie nt states she feels fatigued and is experiencing some chills. Patient has not advanced diet yet and states she is voiding without difficulty. Patient denies fever, flank pain, gross hematuria. Objective Initial Vital Signs Temp Pulse Resp BP Pulse Ox 98.5 F 75 18 112/96 100 03/08/18 13:34 03/08/18 13:34 03/08/18 13:34 03/08/18 13:34 03/08/18 13:34 - General physical appearance Present: no distress, no pain - Respiratory Present: normal expansion, normal respiratory effort - Abdomen Present: soft, non tender - Integumentary Present: no rash, no abnormal pigmentation - Psychiatric Present: oriented to time, oriented to person, oriented to place, speech is normal, memory intact - Labs 03/10/18 07:21 03/10/18 07:21 Diabetes panel 03/10/18 Range/Units 07:21 Sodium 140 (136-145) mEq/L Potassium 4.0 (3.5-5.1) mEq/L Chloride 109 H (98-107) mEq/L Carbon Dioxide 28 (23-29) mEq/L BUN 7 L (8-23) mg/dL Creatinine 0.55 L (0.60-1.20) mg/dL Glucose 123 H (70-105) mg/dL Calcium 7.9 L (8.6-10.3) mg/dL Calcium panel 03/10/18 Range/Units 07:21 Calcium 7.9 L (8.6-10.3) mg/dL Pituitary panel 03/10/18 Range/Units 07:21 Sodium 140 (136-145) mEq/L Potassium 4.0 (3.5-5.1) mEq/L Chloride 109 H (98-107) mEq/L Carbon Dioxide 28 (23-29) mEq/L BUN 7 L (8-23) mg/dL Creatinine 0.55 L (0.60-1.20) mg/dL Glucose 123 H (70-105) mg/dL Calcium 7.9 L (8.6-10.3) mg/dL Adrenal panel 03/10/18 Range/Units 07:21 Sodium 140 (136-145) mEq/L Potassium 4.0 (3.5-5.1) mEq/L Chloride 109 H (98-107) mEq/L Carbon Dioxide 28 (23-29) mEq/L BUN 7 L (8-23) mg/dL Creatinine 0.55 L (0.60-1.20) mg/dL Glucose 123 H (70-105) mg/dL Calcium 7.9 L (8.6-10.3) mg/dL Consult Discharge Plan - Plan Referrals: Alexis Love DO [Primary Care Provider] - Tucker Borges MD [Partnered Physician] - (Office will call with appointment date and time. Thank you) <Tucker Borges - Last Filed: 03/10/18 17:35> Date of Encounter: 03/10/18 - Assessment and Plan (1) Renal calculus, left Current Visit: Yes Status: Acute Assessment and plan: Patient seen and examined. Agree with physician assistants assessment. We will plan outpatient stone management. She has improved clinically but still has some discomfort and nausea. She does admit that it is improved. Objective Initial Vital Signs Temp Pulse Resp BP Pulse Ox 98.5 F 75 18 112/96 100 03/08/18 13:34 03/08/18 13:34 03/08/18 13:34 03/08/18 13:34 03/08/18 13:34 - Labs 03/10/18 07:21 03/10/18 07:21 Diabetes panel 03/10/18 Range/Units 07:21 Sodium 140 (136-145) mEq/L Potassium 4.0 (3.5-5.1) mEq/L Chloride 109 H (98-107) mEq/L Carbon Dioxide 28 (23-29) mEq/L BUN 7 L (8-23) mg/dL Creatinine 0.55 L (0.60-1.20) mg/dL Glucose 123 H (70-105) mg/dL Calcium 7.9 L (8.6-10.3) mg/dL Calcium panel 03/10/18 Range/Units 07:21 Calcium 7.9 L (8.6-10.3) mg/dL Pituitary panel 03/10/18 Range/Units 07:21 Sodium 140 (136-145) mEq/L Potassium 4.0 (3.5-5.1) mEq/L Chloride 109 H (98-107) mEq/L Carbon Dioxide 28 (23-29) mEq/L BUN 7 L (8-23) mg/dL Creatinine 0.55 L (0.60-1.20) mg/dL Glucose 123 H (70-105) mg/dL Calcium 7.9 L (8.6-10.3) mg/dL Adrenal panel 03/10/18 Range/Units 07:21 Sodium 140 (136-145) mEq/L Potassium 4.0 (3.5-5.1) mEq/L Chloride 109 H (98-107) mEq/L Carbon Dioxide 28 (23-29) mEq/L BUN 7 L (8-23) mg/dL Creatinine 0.55 L (0.60-1.20) mg/dL Glucose 123 H (70-105) mg/dL Calcium 7.9 L (8.6-10.3) mg/dL
--- NOTE | 2018-03-10 11:36 | Internal Med Progress Note ---
<Oriana Paniagua - Last Filed: 03/10/18 12:57> Hospitalist Progress Note - Encounter Date of Encounter: 03/10/18 - Exam Vitals: Temp Pulse Resp BP Pulse Ox 97.4 F L 65 15 108/63 97 03/10/18 11:25 03/10/18 11:25 03/10/18 11:25 03/10/18 11:25 03/10/18 11:25 - Assessment and Plan (1) Urinary tract infection Current Visit: Yes Status: Acute (2) DVT prophylaxis Current Visit: No Status: Acute (3) Nausea and vomiting Current Visit: Yes Status: Acute (4) Schatzki's ring Current Visit: No Status: Chronic (5) Renal calculus, left Current Visit: Yes Status: Acute (6) Constipation Current Visit: Yes Status: Acute (7) Atrial fibrillation Current Visit: Yes Status: Acute (8) Abdominal pain Current Visit: Yes Status: Acute - Time Spent with Patient Total time spent is greater than 50% in coordination of care (as documented) at patient's floor/unit and/or counseling patient: Internal Medicine: Result - Labs CBC & Chem 7: 03/10/18 07:21 03/10/18 07:21 Labs: Short CBC 03/10/18 Range/Units 07:21 WBC 5.3 (4.3-11.1) K/mcL Hgb 12.1 (11.5-15.4) g/dL Hct 38.7 (35.3-44.9) % Plt Count 244 (140-400) K/mcL Neutrophils # 3.9 (1.6-8.9) K/mcL BMP 03/10/18 07:21 Sodium 140 Potassium 4.0 Chloride 109 H Carbon Dioxide 28 BUN 7 L Creatinine 0.55 L Glucose 123 H Calcium 7.9 L - ABG Interpretation ABG results: PT/INR, D-dimer PT 11.6 Seconds (9.4-12.1) 03/09/18 05:30 - Impressions Impressions Retrograde Pyelogram 03/09/18 00:00 IMPRESSION: Intraprocedural fluoroscopic spot images as above. See separate procedure report for more information. D/ / Jim Lee MD / Jim Lee MD Interpreting Provider: Jim Lee MD Consult Discharge Plan - Plan Referrals: Alexis Love DO [Primary Care Provider] - Tucker Borges MD [Partnered Physician] - (Office will call with appointment date and time. Thank you) - Attending Attestation I examined this patient and my medical decision-making was reviewed with the Resident Physician Dr Taylor. I agree with the documented findings, disposition and treatment plan as described except to the extent set forth below. Ms Rubin was admitted with nausea and emesis with known schatzki ring and followed outpt by GI. Found to have UTI and left renal calculus requiring left ureteral stent this admit. awake, pleasant, no change in nausea, some left flank pain. No emesis. Ate breakfast without worsened nausea, abd pain or emesis. denies fevers, chills. gen- alert, awake,appears stated age eyes- pupils equal round cv- reg rate and rhythm, normal s1,s2, no murmurs appreciated, no le edema lungs- ctabl, no wheezing, rhonchi or crackles abd- soft, non tender, non distended, + bs neuro- AAOx3 UTI-cont rocephin, ucx pending Left renal calculus s/p left ureteral stent- will require outpt stone extraction, urology following Nausea without emesis- prn anti emetic, full diet as this was her gi recommended diet prior to this admission given esophageal disease, cont uti treatment schatzki ring- cont full liquid diet, gi following, if not improvement in sxs with above urologic treatment then would consider EGD this admit further diagnoses and plan as noted by resident <Boaz Taylor - Last Filed: 03/10/18 18:32> Hospitalist Progress Note - Encounter Date of Encounter: 03/10/18 Time of Encounter: 10:00 - Subjective Interval History: Ms. Rubin is a 77F with PMH of HTN, TX, and Afib. She was recently admitted in January of 2018 for nausea/vomiting. She presented to the ED on 03/08/18 for worsening N/V of [address] abdomen/pelvis revealed significant constipation as well as a left renal calculus. Underwent ureteral stent placement on 03/09, and per nurse reports there was purulence visualized near the calculus. Pt seen and examined at bedside. States she feels somewhat better today and was able to eat part of a pancake for breakfast. She continues to complain of some RUQ abdominal pain, as well as some L flank discomfort. She continues to deny any fever, chills, chest pain, shortness of breath, dizziness, numbness, or tingling. States she has not had any further bowel movements since her many loose stools yesterday. - Exam Vitals: Temp Pulse Resp BP Pulse Ox 97.4 F L 65 15 108/63 97 03/10/18 11:25 03/10/18 11:25 03/10/18 11:25 03/10/18 11:25 03/10/18 11:25 Exam: General: Pleasant, elderly female in no acute distress. Head: Normocephalic, atraumatic Eyes: EOMI, PERRL. sclera anicteric. conjunctiva pink Neck: supple, trachea midline CV: Irregular rhythm. +s1 +S2 no murmurs, clicks, or rubs Resp: CTA bilaterally. non-labored breathing. no wheezes, rales, or rhonchi GI: Abdomen soft and mildly tender to palpation of epigastrium and RUQ, no rebound tenderness. negative lenz's sign. Extremities: warm, peripheral pulses palpable and symmetrical. no edema or cyanosis Neuro: A&Ox3. no focal deficits. no speech difficulty or abnormality Skin: warm, dry, intact - Assessment and Plan (1) Urinary tract infection Current Visit: Yes Status: Acute Assessment and Plan: Acute complicated cystitis with microscopic hematuria in setting of left renal calculi Left ureteral stent placed in 03/09 Urine culture pending - results may be inconclusive since it was difficult to obtain a sample prior to abx therapy Continue rocephin (2) Nausea and vomiting Current Visit: Yes Status: Acute Assessment and Plan: Improved to nausea without emesis prn Zofran Advance diet to full liquids since this was GI rec prior to admission with hx of esophageal disease (3) Renal calculus, left Current Visit: Yes Status: Acute Assessment and Plan: Per urology will require staged removal KUB per urology for operative planning (4) Constipation Current Visit: Yes Status: Acute Assessment and Plan: Resolved with Senna Plus Colace daily for gentle stool softener (5) Schatzki's ring Current Visit: No Status: Chronic Assessment and Plan: As demonstrated on EGD from 02/02 Dilated during previous admission Full liquid diet as recommended by GI If no improvement with urologic treatment, may require another EGD (6) Abdominal pain Current Visit: Yes Status: Acute Assessment and Plan: Likely secondary to constipation vs GERD vs renal calculus Patient's complaint of "chest pain" is distinctly related to PO intake of food and liquid and is described as a burning in chest This is consistent with GI pain versus cardiac or vascular injury We will continue workup and treatment of GI sources of pain Urology treatment as above (7) Atrial fibrillation Current Visit: Yes Status: Acute Assessment and Plan: Rate controlled on atenolol Not on anticoagulation. [id number] 3 We will discuss pros and cons of anticoagulation DVT Prophylaxis: SQ Heparin - Time Spent with Patient Total time spent is greater than 50% in coordination of care (as documented) at patient's floor/unit and/or counseling patient: Internal Medicine: Result - Labs CBC & Chem 7: 03/10/18 07:21 03/10/18 07:21 Labs: Short CBC 03/10/18 Range/Units 07:21 WBC 5.3 (4.3-11.1) K/mcL Hgb 12.1 (11.5-15.4) g/dL Hct 38.7 (35.3-44.9) % Plt Count 244 (140-400) K/mcL Neutrophils # 3.9 (1.6-8.9) K/mcL BMP 03/10/18 07:21 Sodium 140 Potassium 4.0 Chloride 109 H Carbon Dioxide 28 BUN 7 L Creatinine 0.55 L Glucose 123 H Calcium 7.9 L - ABG Interpretation ABG results: PT/INR, D-dimer PT 11.6 Seconds (9.4-12.1) 03/09/18 05:30 - Impressions Impressions Retrograde Pyelogram 03/09/18 00:00 IMPRESSION: Intraprocedural fluoroscopic spot images as above. See separate procedure report for more information. D/ / Jim Lee MD / Jim Lee MD Interpreting Provider: Jim Lee MD <Oriana Paniagua - Last Filed: 03/10/18 12:57> (1) Urinary tract infection Qualifiers: Urinary tract infection type: acute cystitis Hematuria presence: with hematuria Qualified Code(s): N30.01 - Acute cystitis with hematuria (3) Nausea and vomiting Qualifiers: Vomiting type: unspecified Vomiting Intractability: unspecified Qualified Code(s): R11.2 - Nausea with vomiting, unspecified (6) Constipation Qualifiers: Constipation type: unspecified constipation type Qualified Code(s): K59.00 - Constipation, unspecified (7) Atrial fibrillation Qualifiers: Atrial fibrillation type: persistent Qualified Code(s): I48.1 - Persistent atrial fibrillation (8) Abdominal pain Qualifiers: Abdominal location: epigastric Qualified Code(s): R10.13 - Epigastric pain <Boaz Taylor - Last Filed: 03/10/18 18:32> (1) Urinary tract infection Qualifiers: Urinary tract infection type: acute cystitis Hematuria presence: with hematuria Qualified Code(s): N30.01 - Acute cystitis with hematuria (2) Nausea and vomiting Qualifiers: Vomiting type: unspecified Vomiting Intractability: unspecified Qualified Code(s): R11.2 - Nausea with vomiting, unspecified (4) Constipation Qualifiers: Constipation type: unspecified constipation type Qualified Code(s): K59.00 - Constipation, unspecified (6) Abdominal pain Qualifiers: Abdominal location: generalized Qualified Code(s): R10.84 - Generalized abdominal pain (7) Atrial fibrillation Qualifiers: Atrial fibrillation type: persistent Qualified Code(s): I48.1 - Persistent atrial fibrillation
[2018-03-10] MEDS: Latanoprost 2.5 ML BOTTLE BOTH EYES SCH (17:23)
[2018-03-10] MEDS: traZODone 50 MG TABLET PO PRN (20:40)
[2018-03-11] MEDS: Ondansetron 4 MG/2 ML VIAL IVP SCH ×4 (02:42→21:04)
[2018-03-11 04:36] LABS: Basophils % 0.3 %; Eosinophils # 0.1 K/mcL (0.0-0.6); Eosinophils % 1.2 %; Hematocrit 37.9 % (35.3-44.9); Hemoglobin 11.8 g/dL (11.5-15.4); Immature Granulocytes % 0.2 % (0-4); Lymphocytes # 2.1 K/mcL (0.6-4.6); Lymphocytes % 35.3 %; Mean Corpuscular HGB Conc 31.1 g/dL (31.6-35.5); Mean Platelet Volume 10.7 fL (9.4-12.4); Monocytes # 0.4 K/mcL (0.0-1.3); Neutrophils # 3.3 K/mcL (1.6-8.9); Platelet Count 226 K/mcL (140-400); Red Blood Count 4.21 M/mcL (3.82-4.97); Red Cell Distribution Width 14.6 % (11.5-14.5)
[2018-03-11 04:47] LABS: BUN/Creatinine Ratio 9 (6-26); Blood Urea Nitrogen 5 mg/dL (8-23); Calcium 7.7 mg/dL (8.6-10.3); Carbon Dioxide 26 mEq/L (23-29); Chloride 114 mEq/L (98-107); Glucose 95 mg/dL (70-105); Magnesium 1.7 mg/dL (1.6-2.6); Osmolality,Calculated 293 (280-300); Phosphorous 1.6 mg/dL (2.7-4.5); Potassium 3.7 mEq/L (3.5-5.1); Sodium 143 mEq/L (136-145); eGFR For Non-African Americans > 60 (> 60)
[2018-03-11] MEDS: *HR* Heparin 5,000 UNIT/ML VIAL SQ SCH ×3 (05:03→21:05)
[2018-03-11] MEDS: Aspirin 81 MG TAB.CHEW PO SCH (08:27)
[2018-03-11] MEDS: cefTRIAXone 1,000 MG in Water for inj. (sterile) 20 ML 10 ML IVP SCH ×2 (08:27→10:53)
[2018-03-11] MEDS: Gabapentin 100 MG CAPSULE PO SCH ×3 (08:28→21:04)
[2018-03-11] MEDS: Dorzolamide OPTH 10 ML BOTTLE LEFT EYE SCH ×3 (08:29→21:09)
[2018-03-11] MEDS: D5% in 0.45% NACL 1,000 ML IVC SCH (08:33)
--- NOTE | 2018-03-11 13:28 | Internal Med Progress Note ---
<Oriana Paniagua - Last Filed: 03/11/18 14:16> Hospitalist Progress Note - Encounter Date of Encounter: 03/11/18 - Exam Vitals: Temp Pulse Resp BP Pulse Ox 97.6 F 71 16 109/71 97 03/11/18 10:37 03/11/18 10:37 03/11/18 10:37 03/11/18 10:37 03/11/18 10:37 - Assessment and Plan (1) Urinary tract infection Current Visit: Yes Status: Acute (2) Nausea and vomiting Current Visit: Yes Status: Acute (3) Schatzki's ring Current Visit: No Status: Chronic (4) Renal calculus, left Current Visit: Yes Status: Acute (5) Constipation Current Visit: Yes Status: Acute (6) Atrial fibrillation Current Visit: Yes Status: Acute (7) Abdominal pain Current Visit: Yes Status: Acute - Time Spent with Patient Total time spent is greater than 50% in coordination of care (as documented) at patient's floor/unit and/or counseling patient: Internal Medicine: Result - Labs CBC & Chem 7: 03/11/18 03:48 03/11/18 03:48 Labs: Short CBC 03/11/18 Range/Units 03:48 WBC 5.8 (4.3-11.1) K/mcL Hgb 11.8 (11.5-15.4) g/dL Hct 37.9 (35.3-44.9) % Plt Count 226 (140-400) K/mcL Neutrophils # 3.3 (1.6-8.9) K/mcL BMP 03/11/18 03:48 Sodium 143 Potassium 3.7 Chloride 114 H Carbon Dioxide 26 BUN 5 L Creatinine 0.55 L Glucose 95 Calcium 7.7 L - ABG Interpretation ABG results: PT/INR, D-dimer PT 11.6 Seconds (9.4-12.1) 03/09/18 05:30 - Impressions Impressions KUB X-Ray 03/10/18 09:07 IMPRESSION: Double-J stent in the left collecting system. No obvious residual stone by plain film imaging as discussed above. D/ / 03/10/2018 15:10:56 Macrina Larry MD / lauren Interpreting Provider: Macrina Larry MD Consult Discharge Plan - Plan Referrals: Alexis Love DO [Primary Care Provider] - Tucker Borges MD [Partnered Physician] - (Office will call with appointment date and time. Thank you) - Attending Attestation I examined this patient and my medical decision-making was reviewed with the Resident Physician Dr Taylor. I agree with the documented findings, disposition and treatment plan as described except to the extent set forth below. Ms Rubin was admitted with nausea and emesis with known schatzki ring and followed outpt by GI. Found to have UTI and left renal calculus requiring left ureteral stent this admit. awake, no further nausea and tolerating diet without nausea, emesis or worsened abd pain. cont to have some mild abd discomfort but overall feeling improved since admit. As discussed with pt she is only on ASA for afib as that was decided upon by previous providers and she would like to continue with this medicationa gen- alert, awake,appears stated age eyes- pupils equal round , no scleral icterus cv- reg rate and rhythm, normal s1,s2, no murmurs appreciated, no le edema lungs- ctabl, no wheezing, rhonchi or crackles abd- soft, non tender, non distended, + bs neuro- AAOx3 UTI-cont rocephin, ucx no growth but obtained after abx started Left renal calculus s/p left ureteral stent- will require outpt stone extraction, urology following Nausea without emesis- prn anti emetic, full diet as this was her gi recommended diet prior to this admission given esophageal disease, cont uti treatment schatzki ring- cont full liquid diet, gi following, will ask them to re eval Afib hx, currently NSR- on ASA and atenolol at home as discussed with pt, cont home meds Hypophosphatemia Hypomagnesemia -replete PO and cont to monitor further diagnoses and plan as noted by resident <Boaz Taylor - Last Filed: 03/11/18 18:28> Hospitalist Progress Note - Encounter Date of Encounter: 03/11/18 Time of Encounter: 09:00 - Subjective Interval History: Ms. Rubin is a 77F with PMH of HTN, [place], and Afib. She was recently admitted in January of 2018 for nausea/vomiting. She presented to the ED on 03/08/18 for worsening N/V of [address] abdomen/pelvis revealed significant constipation as well as a left renal calculus. Underwent ureteral stent placement on 03/09, and per nurse reports there was purulence visualized near the calculus. Pt seen and examined at bedside. States she feels somewhat better today with continued epigastric and RUQ pain, but nearly resolved left sided abdominal pain. Denies any nausea or emesis. She continues to deny any fever, chills, chest pain, shortness of breath, dizziness, numbness, or tingling. States she has been having small bowel movements. - Exam Vitals: Temp Pulse Resp BP Pulse Ox 97.6 F 71 16 109/71 97 03/11/18 10:37 03/11/18 10:37 03/11/18 10:37 03/11/18 10:37 03/11/18 10:37 Exam: General: Pleasant, elderly female in no acute distress. Head: Normocephalic, atraumatic Eyes: EOMI, PERRL. sclera anicteric. conjunctiva pink Neck: supple, trachea midline CV: Irregular rhythm. +s1 +S2 no murmurs, clicks, or rubs Resp: CTA bilaterally. non-labored breathing. no wheezes, rales, or rhonchi GI: Abdomen soft and mildly tender to palpation of epigastrium and RUQ, no rebound tenderness. negative lenz's sign. Extremities: warm, peripheral pulses palpable and symmetrical. no cyanosis. There is non-pitting edema Neuro: A&Ox3. no focal deficits. no speech difficulty or abnormality Skin: warm, dry, intact - Assessment and Plan (1) Urinary tract infection Current Visit: Yes Status: Acute Assessment and Plan: Acute complicated cystitis with microscopic hematuria in setting of left renal calculi Left ureteral stent placed in 03/09 Urine culture pending - results may be inconclusive since it was difficult to obtain a sample prior to abx therapy Continue rocephin (2) Nausea and vomiting Current Visit: Yes Status: Acute Assessment and Plan: Improved to nausea without emesis prn Zofran Full liquid diet - this was GI rec prior to admission with hx of esophageal disease (3) Renal calculus, left Current Visit: Yes Status: Acute Assessment and Plan: Per urology will require staged removal KUB obtained per urology for operative planning - stone not well appreciated. visualized double-J stent (4) Constipation Current Visit: Yes Status: Acute Assessment and Plan: Resolved with Senna Plus Colace daily for gentle stool softener (5) Schatzki's ring Current Visit: No Status: Chronic Assessment and Plan: As demonstrated on EGD from 02/02 Dilated during previous admission Full liquid diet as recommended by GI If no improvement with urologic treatment, may require another EGD, GI following (6) Abdominal pain Current Visit: Yes Status: Acute Assessment and Plan: Likely secondary to constipation vs GERD vs renal calculus Patient's complaint of "chest pain" is distinctly related to PO intake of food and liquid and is described as a burning in chest TTP of epigastrium and RUQ This is consistent with GI pain versus cardiac or vascular injury We will continue workup and treatment of GI sources of pain Urology treatment as above (7) Atrial fibrillation Current Visit: Yes Status: Acute Assessment and Plan: Rate controlled on atenolol Continue ASA, not on further anticoagulation with instability as per outpatient cardiology notes DVT Prophylaxis: SQ Heparin - Time Spent with Patient Total time spent is greater than 50% in coordination of care (as documented) at patient's floor/unit and/or counseling patient: Internal Medicine: Result - Labs CBC & Chem 7: 03/11/18 03:48 03/11/18 03:48 Labs: Short CBC 03/11/18 Range/Units 03:48 WBC 5.8 (4.3-11.1) K/mcL Hgb 11.8 (11.5-15.4) g/dL Hct 37.9 (35.3-44.9) % Plt Count 226 (140-400) K/mcL Neutrophils # 3.3 (1.6-8.9) K/mcL BMP 03/11/18 03:48 Sodium 143 Potassium 3.7 Chloride 114 H Carbon Dioxide 26 BUN 5 L Creatinine 0.55 L Glucose 95 Calcium 7.7 L - ABG Interpretation ABG results: PT/INR, D-dimer PT 11.6 Seconds (9.4-12.1) 03/09/18 05:30 - Impressions Impressions KUB X-Ray 03/10/18 09:07 IMPRESSION: Double-J stent in the left collecting system. No obvious residual stone by plain film imaging as discussed above. D/ / 03/10/2018 15:10:56 Macrina Larry MD / lauren Interpreting Provider: Macrina Larry MD <Oriana Paniagua - Last Filed: 03/11/18 14:16> (1) Urinary tract infection Qualifiers: Urinary tract infection type: acute cystitis Hematuria presence: with hematuria Qualified Code(s): N30.01 - Acute cystitis with hematuria (2) Nausea and vomiting Qualifiers: Vomiting type: unspecified Vomiting Intractability: unspecified Qualified Code(s): R11.2 - Nausea with vomiting, unspecified (5) Constipation Qualifiers: Constipation type: unspecified constipation type Qualified Code(s): K59.00 - Constipation, unspecified (6) Atrial fibrillation Qualifiers: Atrial fibrillation type: persistent Qualified Code(s): I48.1 - Persistent atrial fibrillation (7) Abdominal pain Qualifiers: Abdominal location: generalized Qualified Code(s): R10.84 - Generalized abdom inal pain <Boaz Taylor - Last Filed: 03/11/18 18:28> (1) Urinary tract infection Qualifiers: Urinary tract infection type: acute cystitis Hematuria presence: with hematuria Qualified Code(s): N30.01 - Acute cystitis with hematuria (2) Nausea and vomiting Qualifiers: Vomiting type: unspecified Vomiting Intractability: unspecified Qualified Code(s): R11.2 - Nausea with vomiting, unspecified (4) Constipation Qualifiers: Constipation type: unspecified constipation type Qualified Code(s): K59.00 - Constipation, unspecified (6) Abdominal pain Qualifiers: Abdominal location: generalized Qualified Code(s): R10.84 - Generalized abdominal pain (7) Atrial fibrillation Qualifiers: Atrial fibrillation type: persistent Qualified Code(s): I48.1 - Persistent atrial fibrillation
[2018-03-11] MEDS: Latanoprost 2.5 ML BOTTLE BOTH EYES SCH (16:15)
[2018-03-11] MEDS: Magnesium Oxide 400 MG TABLET PO SCH (16:15)
[2018-03-11] MEDS: Ketorolac 15 MG/ML VIAL IVP PRN (22:08)
[2018-03-11] MEDS: traZODone 50 MG TABLET PO PRN (22:08)
[2018-03-12] MEDS: Ondansetron 4 MG/2 ML VIAL IVP SCH ×3 (02:14→14:19)
[2018-03-12] MEDS: D5% in 0.45% NACL 1,000 ML IVC SCH ×2 (02:14→14:20)
[2018-03-12 05:04] LABS: Basophils % 0.4 %; Eosinophils # 0.2 K/mcL (0.0-0.6); Eosinophils % 3.1 %; Hemoglobin 11.9 g/dL (11.5-15.4); Immature Granulocytes % 0.4 % (0-4); Lymphocytes % 35.1 %; Mean Corpuscular HGB Conc 31.3 g/dL (31.6-35.5); Mean Corpuscular Hemoglobin 28.1 pg (28.0-33.3); Mean Corpuscular Volume 89.8 fL (83.0-100.0); Mean Platelet Volume 10.3 fL (9.4-12.4); Monocytes # 0.4 K/mcL (0.0-1.3); Monocytes % 7.2 %; Platelet Count 234 K/mcL (140-400); Red Blood Count 4.23 M/mcL (3.82-4.97); Red Cell Distribution Width 14.8 % (11.5-14.5); Segmented Neutrophils % 53.8 %
[2018-03-12 05:13] LABS: BUN/Creatinine Ratio 10 (6-26); Blood Urea Nitrogen 6 mg/dL (8-23); Carbon Dioxide 26 mEq/L (23-29); Chloride 112 mEq/L (98-107); Glucose 93 mg/dL (70-105); Magnesium 1.8 mg/dL (1.6-2.6); Osmolality,Calculated 289 (280-300); Potassium 4.1 mEq/L (3.5-5.1); Sodium 141 mEq/L (136-145); eGFR For Non-African Americans > 60 (> 60)
[2018-03-12] MEDS: *HR* Heparin 5,000 UNIT/ML VIAL SQ SCH ×2 (05:16→14:19)
[2018-03-12] MEDS: cefTRIAXone 1,000 MG in Water for inj. (sterile) 20 ML 10 ML IVP SCH (08:03)
[2018-03-12] MEDS: Ketorolac 15 MG/ML VIAL IVP PRN (08:03)
[2018-03-12] MEDS: Gabapentin 100 MG CAPSULE PO SCH ×2 (08:04→14:19)
[2018-03-12] MEDS: Aspirin 81 MG TAB.CHEW PO SCH (08:04)
[2018-03-12] MEDS: Magnesium Oxide 400 MG TABLET PO SCH (08:04)
[2018-03-12] MEDS: Dorzolamide OPTH 10 ML BOTTLE LEFT EYE SCH ×2 (08:05→14:20)
[2018-03-12] MEDS ORDERED: Magnesium Oxide 400 MG TABLET PO SCH (09:00)
[2018-03-12 14:14] VITALS: BP 126/82
--- NOTE | 2018-03-12 15:03 | Discharge Summary ---
<Oriana Paniagua - Last Filed: 03/12/18 15:57> Date of Encounter: 03/12/18 - Discharge Diagnosis (1) Urinary tract infection Status: Acute Qualifiers: Urinary tract infection type: acute cystitis Hematuria presence: with hem aturia Qualified Code(s): N30.01 - Acute cystitis with hematuria (2) Nausea and vomiting Status: Acute Qualifiers: Vomiting type: unspecified Vomiting Intractability: unspecified Qualified Code(s): R11.2 - Nausea with vomiting, unspecified (3) Schatzki's ring Status: Chronic (4) Renal calculus, left Status: Acute (5) Constipation Status: Acute Qualifiers: Constipation type: unspecified constipation type Qualified Code(s): K59.00 - Constipation, unspecified (6) Atrial fibrillation Status: Acute Qualifiers: Atrial fibrillation type: persistent Qualified Code(s): I48.1 - Persistent atrial fibrillation (7) Abdominal pain Status: Acute Qualifiers: Abdominal location: generalized Qualified Code(s): R10.84 - Generalized abdominal pain Hospital course: Ms. Rubin is a 77 year old female - Time Spent with Patient Total time spent providing and/or coordinating discharge services: - Discharge Medications Prescriptions: Docusate [Colace] 100 mg PO DAILY 30 Days #30 capsule Levofloxacin [Levaquin] 750 mg PO DAILY 5 Days #5 tablet Magnesium Oxide [Mag-Ox] 400 mg PO DAILY 30 Days #30 tablet Home Medications: Atenolol [Tenormin] 25 mg PO DAILY 02/03/18 [History] Estradiol [Estrace] 1 appl VG 2XW 02/03/18 [History] Mirabegron [Myrbetriq] 50 mg PO DAILY 02/03/18 [History] Solifenacin Succinate [Vesicare] 5 mg PO DAILY 02/03/18 [History] traZODone [TraZODone] 50 mg PO HS PRN 02/03/18 [History] Omeprazole [PriLOSEC] 20 mg PO BIDAC #60 cap 02/05/18 [Rx] Brimonidine 0.2% [Alphagan] 1 drop LEFT EYE TID 02/10/18 [History] Dorzolamide [Trusopt] 1 drop LEFT EYE TID 02/10/18 [History] Glucosamn/Condroitn/C/Mn/Corn [Cvs Glucosamine Chondroitin Tb] 1 tab PO DAILY 02/10/18 [History] Latanoprost [Xalatan] 1 drop BOTH EYES QPM 02/10/18 [History] Metoclopramide [Reglan] 10 mg PO QID 02/10/18 [History] Multivitamin/Iron/Folic Acid [Certavite-Antioxidant Tablet] 1 tab PO DAILY 02/10/18 [History] Timolol Maleate 0.5% 1 drop BOTH EYES BID 02/10/18 [History] Gabapentin [Neurontin] 100 mg PO TID 03/09/18 [History] Aspirin 81 mg PO DAILY tab.chew 03/12/18 [Rx] Docusate [Colace] 100 mg PO DAILY 30 Days #30 capsule 03/12/18 [Rx] Levofloxacin [Levaquin] 750 mg PO DAILY 5 Days #5 tablet 03/12/18 [Rx] Magnesium Oxide [Mag-Ox] 400 mg PO DAILY 30 Days #30 tablet 03/12/18 [Rx] Allergies/Adverse Reactions: Allergy/AdvReac Type Severity Reaction Status Date / Time methadone [Methadone] Allergy See Verified 02/10/18 17:40 Comments Penicillins AdvReac See Verified 02/10/18 17:40 Comments Date of admission: 03/09/18 17:26 Primary care physician: Alexis Love DO Consults: 03/08/18 16:37 Consult to Urology [CONS] Stat Consulting Provider: Urology [facility] Reason for Consult: left stone, ball valve Time Notified: 16:37 Call Completed: Yes 03/08/18 18:25 Consult to Gastroenterology [CONS] Routine Consulting Provider: Gastroenterology Kari Reason for Consult: Intractable Nausea/Vomiting Time Notified: 18:26 Call Completed: Yes 03/11/18 09:18 Consult to Invasive Line Access Team [CONS] Routine Reason for Consult: poor vascualar access Line Type: EPIV 03/11/18 11:39 Consult to [place] Brushing Machine Operator [CONS] Routine Reason for SW Consult: Pt requesting continued PT/OT/RN with Kari CRAWFORD once she is discharged - Constitutional Vitals: Temp Pulse Resp BP Pulse Ox 97.4 F L 72 16 126/82 98 03/12/18 14:14 03/12/18 14:14 03/12/18 14:14 03/12/18 14:14 03/12/18 14:14 - Patient Status Disposition: Home, Self-Care Condition: Good - Discharge Instructions Instructions: Soft Diet (DC), Soft Diet (GEN) Follow Up With: Subhash Mcclain MD [Partnered Physician] - (2-3 weeks, the office will call you with your appointment date and time. Web request sent.) Alexis Love DO [Primary Care Provider] - Tucker Borges MD [Partnered Physician] - (Office will call with appointment date and time. Thank you 1 week follow up) - Attending Attestation I examined this patient and my medical decision-making was reviewed with the Resident Physician Dr Taylor. I agree with the documented findings, disposition and treatment plan as described except to the extent set forth below. Ms Rubin was admitted with nausea and emesis with known schatzki ring and followed outpt by GI. Found to have UTI and left renal calculus requiring left ureteral stent this admit. awake, pleasant, feeling much better, no abd pain, no nausea or emesis and tolerating full liquids without any incident. no fever or chills. discussed discharge planning and answered all questions. gen- alert, awake,appears stated age cv- reg rate and rhythm, normal s1,s2, no murmurs appreciated, no le edema lungs- ctabl, no wheezing, rhonchi or crackles abd- soft, non tender, non distended, + bs neuro- AAOx3 UTI- ucx no growth but obtained after abx started, given calculus will treat with 5 addl days abx, levaquin Left renal calculus s/p left ureteral stent- will require outpt stone extraction, urology follow up in one week outpt Nausea without emesis was most likely related to urologic issues as resolved with intervention- -full diet as this was her gi recommended diet prior to this admission given esophageal disease,I personally discussed with GI team today, no need for scope, fu with Dr mcclain in 2-3 weeks and cont full liquids on dc schatzki ring- cont full liquid diet, gi outpt fu diet as above Afib hx, currently NSR- on ASA and atenolol at home as discussed with pt, cont home meds on dc (of note for some reason her asa was not listed as a home med but she takes daily for afib hx per the pt) Hypophosphatemia, improving- further repleted prior to dc Hypomagnesemia-resolved, cont oral repletion on dc further diagnoses and plan as noted by resident time spent on discharge 40 min <Boaz Taylor - Last Filed: 03/12/18 22:21> - NOTES TO OUTPATIENT PROVIDER Notes to Outpatient Provider: Ms. Rubin was admitted on 03/08 for worsening nausea and vomiting of [address] abdomen/pelvis revealed significant constipation as well as a left renal calculus. She underwent a left ureteral stent placement with Dr. Borges on 03/09. She was also evaluated by GI during this admission with her recent admission for a Schatzki ring dilation. At time of discharge she was given a script for 5 days Levaquin daily to complete the course of a complicated UTI. She was advised to continue a full liquid diet per GI with follow up in 2-3 weeks. She was also advised to follow up with urology in 1 week with plans for outpatient staged nephrolithiasis removal. Date of Encounter: 03/12/18 Time of Encounter: 09:20 - Discharge Diagnosis (1) Abdominal pain Priority: Primary Status: Acute Assessment and Plan: Likely secondary to constipation vs GERD vs renal calculus Patient's complaint of "chest pain" is distinctly related to PO intake of food and liquid and is described as a burning in chest TTP of epigastrium and RUQ This is consistent with GI pain versus cardiac or vascular injury Urology follow up for staged stone removal in 1 week Follow up with GI in 2-3 weeks for schatzki ring Qualifiers: Abdominal location: generalized Qualified Code(s): R10.84 - Generalized abdominal pain (2) Urinary tract infection Priority: Secondary Status: Acute Assessment and Plan: Acute complicated cystitis with microscopic hematuria in setting of left renal calculi Left ureteral stent placed in 03/09 Urine culture pending - results may be inconclusive since it was difficult to obtain a sample prior to abx therapy Script sent for 5 days of levaquin to complete abx therapy Qualifiers: Urinary tract infection type: acute cystitis Hematuria presence: with hematuria Qualified Code(s): N30.01 - Acute cystitis with hematuria (3) Nausea and vomiting Priority: Secondary Status: Acute Assessment and Plan: Improved to nausea without emesis prn Zofran Full liquid diet per GI recommendations Qualifiers: Vomiting type: unspecified Vomiting Intractability: unspecified Qualified Code(s): R11.2 - Nausea with vomiting, unspecified (4) Renal calculus, left Priority: Secondary Status: Acute Assessment and Plan: Per urology will require staged removal KUB obtained per urology for operative planning - stone not well appreciated. visualized double-J stent (5) Constipation Priority: Secondary Status: Acute Assessment and Plan: Resolved with Senna Plus Colace daily for gentle stool softener Qualifiers: Constipation type: unspecified constipation type Qualified Code(s): K59.00 - Constipation, unspecified (6) Schatzki's ring Priority: Secondary Status: Chronic Assessment and Plan: As demonstrated on EGD from 02/02 Dilated during previous admission Full liquid diet as recommended by GI GI follow up as outpatient in 2-3 weeks (7) Atrial fibrillation Priority: Secondary Status: Acute Assessment and Plan: Rate controlled on atenolol Continue ASA, not on further anticoagulation with instability as per outpatient cardiology notes Qualifiers: Atrial fibrillation type: persistent Qualified Code(s): I48.1 - Persistent atrial fibrillation Hospital course: Ms. Rubin is a 77 year old female who was admitted on 03/08 for worsening nausea and vomiting of [address] abdomen/pelvis revealed significant constipation as well as a left renal calculus. She underwent a left ureteral stent placement with Dr. Borges on 03/09. She was also evaluated by GI during this admission with her recent admission for a Schatzki ring dilation. At time of discharge she was given a script for 5 days Levaquin daily to complete the course of a complicated UTI. She was advised to continue a full liquid diet per GI with follow up in 2-3 weeks. She was also advised to follow up with urology in 1 week with plans for outpatient staged nephrolithiasis removal. Discharge discussed with: patient, nurse, real estate listing consultant - Time Spent with Patient Total time spent providing and/or coordinating discharge services: Date of admission: 03/09/18 17:26 Primary care physician: Alexis Love DO Consults: 03/08/18 16:37 Consult to Urology [CONS] Stat Consulting Provider: Urology [facility] Reason for Consult: left stone, ball valve Time Notified: 16:37 Call Completed: Yes 03/08/18 18:25 Consult to Gastroenterology [CONS] Routine Consulting Provider: Lynsey Pierce Reason for Consult: Intractable Nausea/Vomiting Time Notified: 18:26 Call Completed: Yes 03/11/18 09:18 Consult to Invasive Line Access Team [CONS] Routine Reason for Consult: poor vascualar access Line Type: EPIV 03/11/18 11:39 Consult to [place] Brushing Machine Operator [CONS] Routine Reason for SW Consult: Pt requesting continued PT/OT/RN with Kari CRAWFORD once she is discharged Discharging clinician: Boaz Taylor - Constitutional Vitals: Temp Pulse Resp BP Pulse Ox 97.4 F L 72 16 126/82 98 03/12/18 14:14 03/12/18 14:14 03/12/18 14:14 03/12/18 14:14 03/12/18 14:14 General appearance: Present: cooperative, A&O X 3, pleasant, no acute distress, answers questions appropriately Exam: General: Pleasant, elderly female in no acute distress. Head: Normocephalic, atraumatic Eyes: EOMI, PERRL. sclera anicteric. conjunctiva pink Neck: supple, trachea midline CV: Irregular rhythm. +s1 +S2 no murmurs, clicks, or rubs Resp: CTA bilaterally. non-labored breathing. no wheezes, rales, or rhonchi GI: Abdomen soft and mildly tender to palpation of epigastrium and RUQ, no rebound tenderness. negative lenz's sign. Extremities: warm, peripheral pulses palpable and symmetrical. no cyanosis. There is non-pitting edema on the left arm, soft. Neuro: A&Ox3. no focal deficits. no speech difficulty or abnormality Skin: warm, dry, intact - Patient Status Functional capacity at discharge: uses cane/walker Overall status at discharge: patient is progressing back to baseline - Diet and Activity Activity: as per physical therapy, increase activity as tolerated, resume usual activities as tolerated Diet: other (Full liquid diet )
--- NOTE | 2018-03-12 15:45 | Physician Discharge Referral ---
<Boaz Taylor - Last Filed: 03/12/18 15:42> Home Health/Hosp Referral Info Transfer to: Home Health Provider in Charge Post Discharge: PCP - Diagnosis (1) Urinary tract infection Priority: Secondary Status: Acute (2) Nausea and vomiting Priority: Secondary Status: Acute (3) Renal calculus, left Priority: Secondary Status: Acute (4) Constipation Priority: Secondary Status: Acute (5) Schatzki's ring Priority: Secondary Status: Chronic (6) Abdominal pain Priority: Primary Status: Acute (7) Atrial fibrillation Priority: Secondary Status: Acute - Respiratory Orders Smoking Cessation: Smoking cessation has been advised. For more information, call the [place] Tobacco Quit Line at 4-234-KDVL-NOW. - Diet/Nutrition Diet/Nutrition Orders: Mechanical Soft - Activity Activity Orders: Walker - Services Needed Following services are medically necessary services: Nursing, Physical Therapy, Occupational Therapy - Transfer Medications Prescriptions: Docusate [Colace] 100 mg PO DAILY 30 Days #30 capsule Levofloxacin [Levaquin] 750 mg PO DAILY 5 Days #5 tablet Magnesium Oxide [Mag-Ox] 400 mg PO DAILY 30 Days #30 tablet Home Medications: Atenolol [Tenormin] 25 mg PO DAILY 02/03/18 [History] Estradiol [Estrace] 1 appl VG 2XW 02/03/18 [History] Mirabegron [Myrbetriq] 50 mg PO DAILY 02/03/18 [History] Solifenacin Succinate [Vesicare] 5 mg PO DAILY 02/03/18 [History] traZODone [TraZODone] 50 mg PO HS PRN 02/03/18 [History] Omeprazole [PriLOSEC] 20 mg PO BIDAC #60 cap 02/05/18 [Rx] Brimonidine 0.2% [Alphagan] 1 drop LEFT EYE TID 02/10/18 [History] Dorzolamide [Trusopt] 1 drop LEFT EYE TID 02/10/18 [History] Glucosamn/Condroitn/C/Mn/[place] [[facility] Glucosamine Chondroitin Tb] 1 tab PO DAILY 02/10/18 [History] Latanoprost [Xalatan] 1 drop BOTH EYES QPM 02/10/18 [History] Metoclopramide [Reglan] 10 mg PO QID 02/10/18 [History] Multivitamin/Iron/Folic Acid [Certavite-Antioxidant Tablet] 1 tab PO DAILY 02/10/18 [History] Timolol Maleate 0.5% 1 drop BOTH EYES BID 02/10/18 [History] Gabapentin [Neurontin] 100 mg PO TID 03/09/18 [History] Aspirin 81 mg PO DAILY tab.chew 03/12/18 [Rx] Docusate [Colace] 100 mg PO DAILY 30 Days #30 capsule 03/12/18 [Rx] Levofloxacin [Levaquin] 750 mg PO DAILY 5 Days #5 tablet 03/12/18 [Rx] Magnesium Oxide [Mag-Ox] 400 mg PO DAILY 30 Days #30 tablet 03/12/18 [Rx] Allergies/Adverse Reactions: Allergy/AdvReac Type Severity Reaction Status Date / Time methadone [Methadone] Allergy See Verified 02/10/18 17:40 Comments Penicillins AdvReac See Verified 02/10/18 17:40 Comments Certification: Further, I certify that my clinical findings support that this patient is homebound (i.e. absences from home require considerable and taxing effort and are for medical reasons or gnosticist services or infrequently or short duration when for other reasons) because: Homebound Reason: Patient requires assistance of a person or device to safely leave home, Leaving home requires considerable and taxing effort due to condition Attestation: My signature below is to certify that this patient is under my care and that I, or nurse practitioner, or a physician's assistant executive housekeeper working with me, has a [id number] encounter with this patient. <Oriana Paniagua - Last Filed: 03/12/18 15:56> - Diagnosis (1) Urinary tract infection Status: Acute (2) Nausea and vomiting Status: Acute (3) Schatzki's ring Status: Chronic (4) Renal calculus, left Status: Acute (5) Constipation Status: Acute (6) Atrial fibrillation Status: Acute (7) Abdominal pain Status: Acute - Respiratory Orders Smoking Cessation: Smoking cessation has been advised. For more information, call the [place] Tobacco Quit Line at 3-157-ZFJV-NOW. - Diet/Nutrition Diet/Nutrition Orders: Mechanical Soft (FULL LIQUID DIET, NOT MECHANICAL SOFT, WILL FU WITH GI FOR FURTHER EVAL) Certification: Further, I certify that my clinical findings support that this patient is homebound (i.e. absences from home require considerable and taxing effort and are for medical reasons or gnosticist services or infrequently or short duration when for other reasons) because: Attestation: My signature below is to certify that this patient is under my care and that I, or nurse practitioner, or a physician's assistant executive housekeeper working with me, has a [id number] encounter with this patient.
[2018-03-12] MEDS: Latanoprost 2.5 ML BOTTLE BOTH EYES SCH (17:34)
== END 2018-03-12 19:10 | disposition home or self-care (01) | DRG 660 ==
LOC: 3ANU 13:29 → EMEROOARM 13:29 → SUATTDRO 17:13 → 3ANU 18:05 → SUATTDRO 03-09 17:26
PROVIDERS: ADMIT Hospitalist; ATTEND Internal Medicine